=== PATIENT | male | born 1925 | race Caucasian/White ===

== ENCOUNTER 2017-05-05 13:03 | Inpatient (IN) | payer OTHER, MEDICARE ==
[~2017-05-05] VITALS: Ht 162.6 cm; Wt 75.1 kg
[2017-05-05 13:08] VITALS: BP 180/84; PULSE 174; RESP 16; TEMP 98.9; O2SAT 100
--- NOTE | 2017-05-05 13:29 | PD ---
HPI Chief Complaint: Chest Pain Time Seen by Provider: 13:28 Travel History International Travel<30 days: No Contact w/Intl Traveler<30days: No Traveled to known affect area: No History of Present Illness HPI 89-year-old male came to the emergency room with history of chest pain and epigastric pain since last night. Patient says that he had stents put in his biliary duct and pancreatic duct 3 months ago at [place]. However the symptoms started since last night. He appears extremely anxious and shaking. History of vomiting or diarrhea. He says the pain is 7 out of 10 and squeezing. No aggravating or relieving factors identified. [facility] Past Medical History Narrative Medical List of his past medical, surgical, social and family history reviewed from the nursing note. Medical History: Denies Significant Hx Past Surgical History Other Surgery: Yes (stents galbladder, stents pancreas ) Social History Alcohol Use: No Tobacco Use: No Substance Use: No Allergies-Medications (Allergen,Severity, Reaction): Coded Allergies: No Known Allergies (Verified Allergy, Unknown, 05/05/17) Comments No known drug allergies. Reported Meds & Prescriptions Reported Meds & Active Scripts Active Reported Amlodipine (Amlodipine Besylate) 5 Mg Tab 5 Mg PO BID Vitamin D3 (Cholecalciferol) 5,000 Unit Cap 5,000 Units PO DAILY Narrative Medication List of her home medications reviewed from the nursing note. Review of Systems Except as stated in HPI: all other systems reviewed are Neg Cardiovascular: Positive: Chest Pain or Discomfort Gastrointestinal: Positive: Abdominal Pain Physical Exam Narrative GENERAL: Awake, alert, anxious, moderate distress, elderly and frail, emaciated SKIN: Focused skin assessment warm/dry. HEAD: Atraumatic. Normocephalic. EYES: Pupils equal and round. No scleral icterus. No injection or drainage. ENT: No nasal bleeding or discharge. Mucous membranes pink and moist. NECK: Trachea midline. No JVD. CARDIOVASCULAR: Regular rate and rhythm. No murmur appreciated. RESPIRATORY: No accessory muscle use. Clear to auscultation. Breath sounds equal bilaterally. GASTROINTESTINAL: Abdomen soft, non-tender, nondistended. Hepatic and splenic margins not palpable. MUSCULOSKELETAL: No obvious deformities. No clubbing. No cyanosis. No edema. NEUROLOGICAL: Awake and alert. No obvious cranial nerve deficits. Motor grossly within normal limits. Normal speech. PSYCHIATRIC: Appropriate mood and affect; insight and judgment normal. Data Data Last Documented VS Vital Signs Date Time Temp Pulse Resp B/P (MAP) Pulse Ox O2 Delivery O2 Flow Rate FiO2 05/05/17 18:32 100 20 135/71 (92) 99 Room Air 05/05/17 13:08 98.9 Orders Orders Electrocardiogram (05/05/17 13:35) Complete Blood Count With Diff (05/05/17 13:35) Comprehensive Metabolic Panel (05/05/17 13:35) Magnesium (Mg) (05/05/17 13:35) Prothrombin Time / Inr (Pt) (05/05/17 13:35) Troponin I (05/05/17 13:35) Lipase (05/05/17 13:35) Chest, Single Ap (05/05/17 13:35) Ecg Monitoring (05/05/17 13:35) Bilateral Bp Monitoring (05/05/17 13:35) Iv Access Insert/Monitor (05/05/17 13:35) Oximetry (05/05/17 13:35) Oxygen Administration (05/05/17 13:35) Morphine Inj (Morphine Inj) (05/05/17 13:45) Sodium Chloride 0.9% Flush (Ns Flush) (05/05/17 13:45) Sodium Chlorid 0.9% 500 Ml Inj (Ns 500 M (05/05/17 13:45) Cta Thor Abd Aorta W Iv C W3d (05/05/17 13:35) Ondansetron Inj (Zofran Inj) (05/05/17 13:45) Urinalysis - C+S If Indicated (05/05/17 15:58) Iohexol 350 Inj (Omnipaque 350 Inj) (05/05/17 17:40) Piperacil-Tazo 3.375 Gm Premix (Zosyn 3. (05/05/17 19:00) Blood Culture (05/05/17 18:47) Us Abdomen Gallbladder (05/05/17 ) Admit Order (Ed Use Only) (05/05/17 19:30) Labs Laboratory Tests Test 05/05/17 14:00 05/05/17 17:16 White Blood Count 15.4 TH/MM3 Red Blood Count 4.61 MIL/MM3 Hemoglobin 15.0 GM/DL Hematocrit 42.8 % Mean Corpuscular Volume 93.0 FL Mean Corpuscular Hemoglobin 32.5 PG Mean Corpuscular Hemoglobin Concent 35.0 % Red Cell Distribution Width 13.0 % Platelet Count 223 TH/MM3 Mean Platelet Volume 8.2 FL Neutrophils (%) (Auto) 90.0 % Lymphocytes (%) (Auto) 3.3 % Monocytes (%) (Auto) 6.6 % Eosinophils (%) (Auto) 0.0 % Basophils (%) (Auto) 0.1 % Neutrophils # (Auto) 13.9 TH/MM3 Lymphocytes # (Auto) 0.5 TH/MM3 Monocytes # (Auto) 1.0 TH/MM3 Eosinophils # (Auto) 0.0 TH/MM3 Basophils # (Auto) 0.0 TH/MM3 CBC Comment DIFF FINAL Differential Comment Prothrombin Time 10.6 SEC Prothromb Time International Ratio 1.0 RATIO Blood Urea Nitrogen 24 MG/DL Creatinine 0.99 MG/DL Random Glucose 204 MG/DL Total Protein 8.3 GM/DL Albumin 3.4 GM/DL Calcium Level 10.0 MG/DL Magnesium Level 1.6 MG/DL Alkaline Phosphatase 100 U/L Aspartate Amino Transf (AST/SGOT) 22 U/L Alanine Aminotransferase (ALT/SGPT) 22 U/L Total Bilirubin 0.8 MG/DL Sodium Level 136 MEQ/L Potassium Level 3.8 MEQ/L Chloride Level 97 MEQ/L Carbon Dioxide Level 29.0 MEQ/L Anion Gap 10 MEQ/L Estimat Glomerular Filtration Rate 71 ML/MIN Troponin I LESS THAN 0.02 NG/ML Lipase 58 U/L Urine Color YELLOW Urine Turbidity CLEAR Urine pH 6.5 Urine Specific [place] 1.018 Urine Protein 30 mg/dL Urine Glucose (UA) 70 mg/dL Urine Ketones TRACE mg/dL Urine Occult Blood TRACE Urine Nitrite NEG Urine Bilirubin NEG Urine Urobilinogen LESS THAN 2.0 MG/DL Urine Leukocyte Esterase NEG Urine RBC 1 /hpf Urine WBC LESS THAN 1 /hpf Urine Amorphous Sediment RARE Microscopic Urinalysis Comment CULT NOT INDICATED MDM Medical Decision Making Medical Screen Exam Complete: Yes Emergency Medical Condition: Yes Medical Record Reviewed: Yes Interpretation(s) Twelve-lead EKG was reviewed by me. Normal sinus rhythm, left axis deviation, tachycardia, motion artifacts. Heart rate of 120 bpm. Differential Diagnosis ACS, non-STEMI, biliary colic, acute pancreatitis, aortic dissection Narrative Course 4:54 PM the blood test took a substantial amount of time to be resulted. Patient has leukocytosis with a left shift. Awaiting for CT thoracic aortogram to be done and resulted. 6:34 PM all the blood test results of back and besides the leukocytosis everything else is within acceptable limits. CAT scan is still pending to be read at this point. Patient and the family is upset but the nurses tried to explain to them that the CAT scan report is not back yet. I looked at the scan myself and gallbladder and the right gallbladder fossa appears to be abnormal with stranding. I've asked the radiologist to read it. 6:46 PM based on the CAT scan report I put a call out for the general surgeon Dr. Callahan. I'll give the patient a dose of Zosyn for acute cholecystitis. 7:29 PM case was discussed with Dr. Callahan. He wants the patient to be medically admitted and he'll consult on the patient. Procedures EKG Prior to Arrival: No Physician Communication Physician Communication Dr. Callahan Diagnosis Primary Impression: Abdominal pain Qualified Codes: R10.13 - Epigastric pain Additional Impressions: Acute cholecystitis Pancreatic mass History of biliary stent insertion Admitting Information Admitting Physician Requests: Admit Scripts Hydrocodone-Acetaminophen (Portal) 5 Mg-325 Mg Tab 1 TAB PO Q4H Y for PAIN, #20 TAB 0 Refills Prov: Christina Theodore/Check Scaler TELECOM ASSISTANT 05/07/17 Amoxicillin-Clavulanate (Augmentin) 875-125 Mg Tab 1 TAB PO BID for Infection for 5 Days, #10 TAB 0 Refills Prov: Christina Theodore/Check Scaler TELECOM ASSISTANT 05/07/17 Siria Cannon MD May 05, 2017 13:29
[2017-05-05] MEDS ORDERED: CHOL5000 PO (13:31)
[2017-05-05] MEDS ORDERED: AMLO5TAB2 PO (13:31)
[2017-05-05] MEDS ORDERED: LISI-515 PO (13:31)
[2017-05-05] MEDS ORDERED: ONDANSETRON HCL 4 MG/2 ML VIAL IV PUSH ONE (13:45)
[2017-05-05] MEDS ORDERED: MORPHINE SULFATE 4 MG/ML INJ IV PUSH ONE (13:45)
[2017-05-05] MEDS ORDERED: SODIUM CHLORID 0.9% 500 ML INJ 500 ML IV ONE (13:45)
[2017-05-05] MEDS ORDERED: SODIUM CHLORIDE 0.9% FLUSH 10 ML FLUSH IVF PRN (13:45)
[2017-05-05 13:54] VITALS: O2SAT 99
--- NOTE | 2017-05-05 14:37 | RADRPT ---
EXAM DATE/TIME: 05/05/2017 14:13 [facility] COMPARISON: No previous studies available for comparison. INDICATIONS : Chest and back pain. MEDICAL HISTORY : None. SURGICAL HISTORY : 01/2017 stents placed in GB and pancreas. ENCOUNTER: Initial ACUITY: 2 days PAIN SCORE: 7/10 LOCATION: Bilateral chest back. FINDINGS: A single view of the chest demonstrates the lungs to be symmetrically aerated without evidence of mas s, infiltrate or effusion. The cardiomediastinal contours are unremarkable. Osseous structures are intact. There are degenerative changes of both shoulder joints, right greater than left. CONCLUSION: No acute disease. Abel Morocho MD on May 05, 2017 at 14:34 Board Certified Radiologist. This report was verified electronically.
[2017-05-05 15:27] LABS: AUTOMATED NEUTROPHIL # 13.9 TH/MM3 (1.8-7.7); BASOPHIL % 0.1 % (0.0-2.0); HEMATOCRIT 42.8 % (39.0-51.0); LYMPH % 3.3 % (9.0-44.0); LYMPHOCYTE # 0.5 TH/MM3 (1.0-4.8); MEAN CORPUSCULAR HEMOGLOBIN 32.5 PG (27.0-34.0); MEAN PLATELET VOLUME 8.2 FL (7.0-11.0); MONO % 6.6 % (0.0-8.0); PLATELET COUNT 223 TH/MM3 (150-450); RED BLOOD COUNT 4.61 MIL/MM3 (4.50-5.90); WHITE BLOOD COUNT 15.4 TH/MM3 (4.0-11.0)
[2017-05-05 15:39] LABS: PROTHROMBIN TIME - PATIENT 10.6 SEC (9.8-11.6)
[2017-05-05 16:17] LABS: ALKALINE PHOSPHATASE 100 U/L (45-117); TOTAL BILIRUBIN ADULT 0.8 MG/DL (0.2-1.0); TOTAL PROTEIN 8.3 GM/DL (6.4-8.2); TROPONIN I LESS THAN 0.02 NG/ML (0.02-0.05)
[2017-05-05 16:19] LABS: ALBUMIN 3.4 GM/DL (3.4-5.0); ALT (GPT) 22 U/L (12-78); AST (GOT) 22 U/L (15-37); BLOOD UREA NITROGEN 24 MG/DL (7-18); CHLORIDE 97 MEQ/L (98-107); CREATININE 0.99 MG/DL (0.60-1.30); GLOMERULAR FILTRATION RATE 71 ML/MIN (>89); GLUCOSE,RANDOM 204 MG/DL (74-106); MAGNESIUM 1.6 MG/DL (1.5-2.5); SODIUM (NA) 136 MEQ/L (136-145)
[2017-05-05] MEDS ORDERED: IOHEXOL 350 MG/ML 10 ML VIAL (for RAD DIAG) IVCONTRAST ONE (17:40)
[2017-05-05 18:15] LABS: AMORPHOUS SEDIMENT, URINE RARE; BILIRUBIN, URINE NEG (NEG); BLOOD, URINE TRACE (NEG); GLUCOSE,URINE 70 mg/dL (NEG); KETONE, URINE TRACE mg/dL (NEG); NITRITE,URINE NEG (NEG); PH, URINE 6.5 (5.0-8.5); URINE COLOR YELLOW (YELLW/STRAW); URINE LEUKOCYTE ESTERASE NEG (NEG)
[2017-05-05 18:32] VITALS: BP 135/71; PULSE 100; RESP 20; O2SAT 99
--- NOTE | 2017-05-05 18:40 | RADRPT ---
EXAM DATE/TIME: 05/05/2017 17:29 [facility] COMPARISON: No previous studies available for comparison. INDICATIONS : Chest pains with back pain started last pm . IV CONTRAST: 90 cc Omnipaque 350 (iohexol) IV RADIATION DOSE: 71.52 CTDIvol (mGy) MEDICAL HISTORY : Pancreatitis. SURGICAL HISTORY : GB stent ENCOUNTER: Initial ACUITY: 1 day PAIN SCALE: 0/10 LOCATION: Umbilical TECHNIQUE: Volumetric scanning was performed using a multi-row detector CT scanner. The data was post processed with a variety of visualization algorithms including full volume maximum intensity projection, multi -planar sliding thin slab reformation, curved planar reformation, and surface rendering techniques. Using automated exposure control and adjustment of the mA and/or kV according to patient size, radiat ion dose was kept as low as reasonably achievable to obtain optimal diagnostic quality images. DICOM format image data is available electronically for review and comparison. FINDINGS: The arterial structures are suboptimally opacified. LUNGS: There is increased density at the posterior lower lobes bilaterally being more prominent on the right . MEDIASTINUM: No abnormally enlarged lymph nodes by CT criteria. No axillary or hilar abnormalities are identified. Coronary artery calcifications are present. ABDOMEN: There is low-density seen in the liver. There is pneumobilia. The patient is a biliary stent in place . The gallbladder is distended. There is some inflammatory change seen in the right upper quadrant ar ound the gallbladder. There is minimal free fluid in the right paracolic gutter region. The spleen is normal. There is enlargement of the pancreatic head and uncinate process. A mass may be present in t his region. There is minimal cystic change in the pancreatic body and focal calcification at the panc reatic tail. Both kidneys are signal enhancement. Minimal cystic changes in the kidneys. No hydroneph rosis is seen. There are bilateral 1.8 cm adrenal gland masses. There are scattered colonic diverticu la. PELVIS: The prostate appears enlarged. No pelvic mass or adenopathy is seen. THORACIC AORTA: The thoracic aortic root is normal with normal branching of the great vessels. There is no evidence of aneurysm or dissection. Scattered atherosclerotic calcifications are seen. ABDOMINAL AORTA: The aorta is normal in caliber without aneurysm or dissection. The renal arteries are patent bilater ally. The proximal celiac and superior mesenteric arteries are patent and normal in diameter. Athe rosclerotic calcifications are seen. PELVIC VESSELS: The internal iliac and external iliac vessels are patent without aneurysm or stenosis. Atheroscleroti c calcifications are seen. CONCLUSION: 1. The aorta is intact. There are scattered atherosclerotic calcifications. 2. Induration in the fat surrounding the gallbladder in the right upper quadrant with a small amount of free fluid in the right paracolic gutter region. Cholecystitis could have this appearance. The pat ient does have a biliary stent in place. There is pneumobilia. 3. Masslike area seen in the uncinate process measuring approximately 3 cm. This should be correlated with the patient's known history. The patient has a pre-existing biliary stent in place. 4. Scattered colonic diverticula. 5. Bibasilar areas of consolidation or atelectasis being worse on the right. 6. Mild hepatic steatosis. Seth Adams MD on May 05, 2017 at 18:27 Board Certified Radiologist. This report was verified electronically.
[2017-05-05] MEDS ORDERED: PIPERACIL-TAZO 3.375 GM PREMIX 50 ML IV ONE (19:00)
--- NOTE | 2017-05-05 20:56 | HHI.HP ---
[facility] Service [facility] Primary Care Physician Non-Staff Admission Diagnosis abdominal pain, acute cholecystitis, intracranial mass, biliary sten Diagnoses: Travel History International Travel<30 Days: No Contact w/Intl Traveler <30 Da: No Traveled to Known Affected Are: No History of Present Illness 89-year-old male with a past medical history significant for questionable pancreatic mass with biliary stent placement on 01/24 and hypertension presents to the emergency department for the evaluation of severe epigastric pain. The patient reports the pain started this morning is in the epigastrium and radiates to his bilateral sides. He denies any nausea/vomiting. Denies subjective fever but endorses chills. The patient had a biliary stent placed with a biopsy of a pancreatic mass in January of last year. The biopsy reportedly came back inconclusive. Patient denies nausea/vomiting/diarrhea. He denies chest pain or shortness of breath. No lateralizing signs/symptoms. Review of Systems Except as stated in HPI: all other systems reviewed are Neg Past Family Social History Past Medical History Hypertension Biliary stent placement History of pancreatic mass Past Surgical History Pancreatic mass biopsy Biliary stent placement Bilateral knee replacement Reported Medications Reported Meds & Active Scripts Active Reported Lisinopril 20 Mg Tab 20 Mg PO DAILY Amlodipine (Amlodipine Besylate) 5 Mg Tab 5 Mg PO BID Vitamin D3 (Cholecalciferol) 5,000 Unit Cap 5,000 Units PO DAILY Allergies: Coded Allergies: No Known Allergies (Verified Allergy, Unknown, 05/05/17) Family History Negative for CAD/DM Social History Remote history of smoking. Rare alcohol. No illicit drug use. Physical Exam Vital Signs Vital Signs Date Time Temp Pulse Resp B/P (MAP) Pulse Ox O2 Delivery O2 Flow Rate FiO2 05/05/17 18:32 100 20 135/71 (92) 99 Room Air 05/05/17 16:14 18 05/05/17 13:54 99 05/05/17 13:54 99 Room Air 05/05/17 13:26 122 05/05/17 13:08 98.9 174 16 180/84 (116) 100 Physical Exam GENERAL: Occasional male lying in bed SKIN: No rashes, ecchymoses or lesions. Cool and dry. HEAD: Atraumatic. Normocephalic. No temporal or scalp tenderness. EYES: Pupils equal round and reactive. Extraocular motions intact. No scleral icterus. No injection or drainage. ENT: Nose without bleeding, purulent drainage or septal hematoma. Throat without erythema, tonsillar hypertrophy or exudate. Uvula midline. Airway patent. NECK: Trachea midline. No JVD or lymphadenopathy. Supple, nontender, no meningeal signs. CARDIOVASCULAR: Regular rate and rhythm without murmurs, gallops, or rubs. RESPIRATORY: Clear to auscultation. Breath sounds equal bilaterally. No wheezes , rales, or rhonchi. GASTROINTESTINAL: Abdomen soft, diffusely tender to palpation, worse in the epigastrium, nondistended. No hepato-splenomegaly, or palpable masses. No guarding. MUSCULOSKELETAL: Extremities without clubbing, cyanosis, or edema. No joint tenderness, effusion, or edema noted. No calf tenderness. NEUROLOGICAL: Awake and alert. Cranial nerves II through XII intact. Motor and sensory grossly within normal limits. Normal speech. Laboratory Laboratory Tests Test 05/05/17 14:00 05/05/17 17:16 White Blood Count 15.4 Red Blood Count 4.61 Hemoglobin 15.0 Hematocrit 42.8 Mean Corpuscular Volume 93.0 Mean Corpuscular Hemoglobin 32.5 Mean Corpuscular Hemoglobin Concent 35.0 Red Cell Distribution Width 13.0 Platelet Count 223 Mean Platelet Volume 8.2 Neutrophils (%) (Auto) 90.0 Lymphocytes (%) (Auto) 3.3 Monocytes (%) (Auto) 6.6 Eosinophils (%) (Auto) 0.0 Basophils (%) (Auto) 0.1 Neutrophils # (Auto) 13.9 Lymphocytes # (Auto) 0.5 Monocytes # (Auto) 1.0 Eosinophils # (Auto) 0.0 Basophils # (Auto) 0.0 CBC Comment DIFF FINAL Differential Comment Prothrombin Time 10.6 Prothromb Time International Ratio 1.0 Blood Urea Nitrogen 24 Creatinine 0.99 Random Glucose 204 Total Protein 8.3 Albumin 3.4 Calcium Level 10.0 Magnesium Level 1.6 Alkaline Phosphatase 100 Aspartate Amino Transf (AST/SGOT) 22 Alanine Aminotransferase (ALT/SGPT) 22 Total Bilirubin 0.8 Sodium Level 136 Potassium Level 3.8 Chloride Level 97 Carbon Dioxide Level 29.0 Anion Gap 10 Estimat Glomerular Filtration Rate 71 Troponin I LESS THAN 0.02 Lipase 58 Urine Color YELLOW Urine Turbidity CLEAR Urine pH 6.5 Urine Specific [place] 1.018 Urine Protein 30 Urine Glucose (UA) 70 Urine Ketones TRACE Urine Occult Blood TRACE Urine Nitrite NEG Urine Bilirubin NEG Urine Urobilinogen LESS THAN 2.0 Urine Leukocyte Esterase NEG Urine RBC 1 Urine WBC LESS THAN 1 Urine Amorphous Sediment RARE Microscopic Urinalysis Comment CULT NOT INDICATED Result Diagram: 05/05/17 1400 05/05/17 1400 Caprinruma VTE Risk Assessment Caprini VTE Risk Assessment: Mod/High Risk (score >= 2) Caprini Risk Assessment Model Point Value = 1 Point Value = 2 Point Value = 3 Point Value = 5 Age 41-60 Minor surgery BMI > 25 kg/m2 Swollen legs Varicose veins or History of unexplained or recurrent spontaneous Oral contraceptives or hormone replacement Sepsis (< 1 month) Serious lung disease, including pneumonia (< 1 month) Abnormal pulmonary function Acute myocardial infarction Congestive heart failure (< 1 month) History of inflammatory bowel disease Medical patient at bed rest Age 61-74 Arthroscopic surgery Major open surgery (> 45 min) Laparoscopic surgery (> 45 min) Malignancy Confined to bed (> 72 hours) Immobilizing plaster cast Central venous access Age >= 75 History of VTE Family history of VTE Factor V Leiden Prothrombin [id number] Lupus anticoagulant Anticardiolipin antibodies Elevated serum homocysteine Heparin-induced thrombocytopenia Other congenital or acquired thrombophilia Stroke (< 1 month) Elective arthroplasty Hip, pelvis, or leg fracture Acute spinal cord injury (< 1 month) Prophylaxis Regimen Total Risk Factor Score Risk Level Prophylaxis Regimen 0-1 Low Early ambulation 2 Moderate Order ONE of the following: *Sequential Compression Device (SCD) *Heparin 5000 units SQ BID 3-4 Higher Order ONE of the following medications: *Heparin 5000 units SQ TID *Enoxaparin/Lovenox 40 mg SQ daily (WT < 150 kg, CrCl > 30 mL/min) *Enoxaparin/Lovenox 30 mg SQ daily (WT < 150 kg, CrCl > 10-29 mL/min) *Enoxaparin/Lovenox 30 mg SQ BID (WT < 150 kg, CrCl > 30 mL/min) AND/OR *Sequential Compression Device (SCD) 5 or more Highest Order ONE of the following medications: *Heparin 5000 units SQ TID (Preferred with Epidurals) *Enoxaparin/Lovenox 40 mg SQ daily (WT < 150 kg, CrCl > 30 mL/min) *Enoxaparin/Lovenox 30 mg SQ daily (WT < 150 kg, CrCl > 10-29 mL/min) *Enoxaparin/Lovenox 30 mg SQ BID (WT < 150 kg, CrCl > 30 mL/min) AND *Sequential Compression Device (SCD) Assessment and Plan Assessment and Plan Assessment/plan: 1. Cholecystitis CT significant for induration in the fat surrounding the gallbladder in the right upper quadrant with a small amount of free fluid in the right. Colic gutter region, concerning for cholecystitis Patient with leukocytosis of 15.4 Zosyn A bladder ultrasound pending General surgery consulted, appreciate recommendations 2. Pancreatic mass CT of the abdomen/pelvis shows a masslike area seen in the uncinate process measuring approximately 3 cm Patient with known history of pancreatic mass with previous biopsy that was inconclusive Patient will likely need to follow-up as an outpatient with his physicians in [place] 3. Hypertension Continue home amlodipine and lisinopril FEN NPO Electrolytes: monitor and replete prn NS at 100 cc/hr Holding pharmacologic anticoagulation for possible operative intervention Physician Certification 2 Midnight Certification Type: Admission for Inpatient Services Order for Inpatient Services The services are ordered in accordance with Medicare regulations or non- Medicare payer requirements, as applicable. In the case of services not specified as inpatient-only, they are appropriately provided as inpatient services in accordance with the 2-midnight benchmark. Estimated LOS (days): 2 2 days is the estimated time the patient will need to remain in the hospital, assuming treatment plan goals are met and no additional complications. Post-Hospital Plan: Not yet determined Maral Doshi MD May 05, 2017 20:56
[2017-05-05] MEDS ORDERED: SENNOSIDES 8.6 MG TAB PO PRN (21:00)
[2017-05-05] MEDS ORDERED: ONDANSETRON HCL 4 MG/2 ML VIAL IVP PRN (21:00)
[2017-05-05] MEDS: SODIUM CHLOR 0.9% 1000 ML INJ 1,000 ML IV SCH (21:00)
[2017-05-05] MEDS ORDERED: BISACODYL 10 MG SUPP RECTAL PRN (21:00)
[2017-05-05] MEDS ORDERED: NALOXONE HCL 0.4 MG/ML AMP IV PUSH PRN (21:00)
[2017-05-05] MEDS ORDERED: LACTULOSE SYRUP 20 GM/30 ML CUP PO PRN (21:00)
[2017-05-05] MEDS ORDERED: SODIUM CHLORIDE 0.9% FLUSH 10 ML FLUSH IV FLUSH PRN (21:00)
[2017-05-05] MEDS ORDERED: MAGNESIUM HYDROXIDE SUSP 30 ML CUP PO PRN (21:00)
--- NOTE | 2017-05-05 21:14 | RADRPT ---
EXAM DATE/TIME: 05/05/2017 20:41 [facility] COMPARISON: CTA THORACIC ABDOMINAL AORTA W 3D RECON, May 05, 2017, 17:29. INDICATIONS : Cholecystitis. MEDICAL HISTORY : None. SURGICAL HISTORY : Two knee replacements. Stents in gallbladder and pacreas. ENCOUNTER: Initial ACUITY: 1 day PAIN SCORE: 4/10 LOCATION: Right upper quadrant MEASUREMENTS: LIVER: 21.9 cm length COMMON DUCT: 10 mm RIGHT KIDNEY: 12.2 x 5.5 x 5.8 cm FINDINGS: LIVER: Pneumobilia is seen. No focal hepatic masses are seen. COMMON DUCT: There is a biliary stent seen. GALLBLADDER: Numerous gallstones are seen. The gallbladder wall is thickened at 4 mm. Or cholecystic fluid is pres ent. PANCREAS: There is a hypoechoic solid masslike area seen at the pancreatic head and uncinate process measuring 4.6 x 3.5 x 3.0 cm. RIGHT KIDNEY: No evidence of hydronephrosis, stone, or mass. OTHER: There is a 1.5 cm right adrenal gland mass. CONCLUSION: 1. Cholelithiasis with thickened gallbladder wall and pericholecystic fluid thought tot represent cho lecystitis. 2. Pancreatic mass. 3. Biliary stent. Pneumobilia is present. Seth Adams MD on May 05, 2017 at 21:04 Board Certified Radiologist. This report was verified electronically.
[2017-05-05 22:15] VITALS: BP 128/75; PULSE 108; RESP 18; TEMP 97.9; O2SAT 94
[2017-05-05] MEDS: MORPHINE SULFATE 4 MG/ML INJ IV PUSH PRN (22:52)
[2017-05-05] MEDS: SODIUM CHLORIDE 0.9% FLUSH 10 ML FLUSH IV FLUSH SCH (22:53)
[2017-05-05] MEDS: amLODIPine BESYLATE 5 MG TAB PO SCH (22:53)
[2017-05-05] MEDS: DOCUSATE SODIUM 50 MG/SENNA 8.6 MG TAB PO SCH (22:53)
[2017-05-05 23:51] VITALS: BP 115/66; PULSE 90; RESP 16; TEMP 97.7; O2SAT 94
[2017-05-06] VITALS (9 sets, daily range): BP systolic 87–140; BP diastolic 45–69; PULSE 73–92; RESP 16–18; TEMP 97.7–98.1; O2SAT 90–95
[2017-05-06] MEDS: PIPERACIL-TAZO 3.375 GM PREMIX 50 ML IV SCH ×4 (02:00→21:04)
[2017-05-06 06:58] LABS: AUTOMATED NEUTROPHIL # 15.1 TH/MM3 (1.8-7.7); HEMATOCRIT 37.7 % (39.0-51.0); HEMOGLOBIN 13.2 GM/DL (13.0-17.0); LYMPH % 3.4 % (9.0-44.0); LYMPHOCYTE # 0.6 TH/MM3 (1.0-4.8); MEAN CELL VOLUME 92.9 FL (80.0-100.0); MEAN CORPUSCULAR HEMOGLOBIN 32.5 PG (27.0-34.0); MEAN PLATELET VOLUME 8.1 FL (7.0-11.0); MONO % 8.9 % (0.0-8.0); MONOCYTE # 1.5 TH/MM3 (0-0.9); NEUT % 87.7 % (16.0-70.0); PLATELET COUNT 186 TH/MM3 (150-450); RED BLOOD COUNT 4.06 MIL/MM3 (4.50-5.90); WHITE BLOOD COUNT 17.2 TH/MM3 (4.0-11.0)
[2017-05-06] MEDS: SODIUM CHLOR 0.9% 1000 ML INJ 1,000 ML IV SCH ×3 (07:00→22:09)
[2017-05-06 07:43] LABS: ALBUMIN 2.5 GM/DL (3.4-5.0); ALKALINE PHOSPHATASE 76 U/L (45-117); ALT (GPT) 18 U/L (12-78); AST (GOT) 17 U/L (15-37); BICARBONATE 29.6 MEQ/L (21.0-32.0); BLOOD UREA NITROGEN 26 MG/DL (7-18); CHLORIDE 101 MEQ/L (98-107); CREATININE 1.32 MG/DL (0.60-1.30); GLOMERULAR FILTRATION RATE 51 ML/MIN (>89); GLUCOSE,RANDOM 164 MG/DL (74-106); SODIUM (NA) 140 MEQ/L (136-145); TOTAL PROTEIN 6.7 GM/DL (6.4-8.2)
[2017-05-06] MEDS: LISINOPRIL 20 MG TAB PO SCH (09:00)
[2017-05-06] MEDS: DOCUSATE SODIUM 50 MG/SENNA 8.6 MG TAB PO SCH ×2 (09:00→20:40)
[2017-05-06] MEDS: SODIUM CHLORIDE 0.9% FLUSH 10 ML FLUSH IV FLUSH SCH ×2 (09:00→12:50)
[2017-05-06] MEDS: amLODIPine BESYLATE 5 MG TAB PO SCH (09:00)
[2017-05-06] MEDS ORDERED: MIDAZOLAM HCL 2 MG/2 ML VIAL ONE (09:01)
[2017-05-06] MEDS ORDERED: VANCOMYCIN HCL 1000 MG VIAL ONE (09:06)
[2017-05-06] MEDS ORDERED: IOHEXOL 350 MG/ML 50 ML BTL (for RAD DIAG) OTHER ONE (09:59)
--- NOTE | 2017-05-06 10:07 | PD.RAD ---
Post Procedure Progress Note Pre Procedure Diagnosis: (1) Acute cholecystitis Post Procedure Diagnosis: (1) Acute cholecystitis Procedure Date: May 06, 2017 Supervising Radiologist: Aakash Parnell Proceduralist/Assist: RT Renate(R), RT Jerry(R)(CV) Anesthesia: Conscious Sedation Plan of Activity Patient to Unit: Nursing Unit Patient Condition: Fair See PACS Report for procedural detail/treatment Drainage Procedure Procedure 1 Imaging Guidance: Fluoroscopy Procedure Type: Cholecystostomy Procedure: Placement Citizen Of [place]: 8 Fluid Description: Cloudy, Yellow Aakash Parnell MD May 06, 2017 10:07
[2017-05-06] MEDS: MORPHINE SULFATE 4 MG/ML INJ IV PUSH PRN ×3 (10:57→22:20)
--- NOTE | 2017-05-06 11:35 | MB ---
cc: Lincoln Callahan MD DATE: 05/06/2017 CHIEF COMPLAINT: Abdominal pain. REASON FOR CONSULTATION: Acute cholecystitis with cholelithiasis. HISTORY OF PRESENT ILLNESS: The patient is an 89-year-old male who presents with acute onset of epigastric and right-sided abdominal pain. He states the pain has been going on for some time now and continued to get worse acutely. He has a history of a questionable pancreatic mass and biliary stenting. The patient is somewhat of a poor historian and difficult to elucidate of full history; however, the patient notes that this significant pain. He is hemodynamically stable; however, he is somewhat tachycardic. Surgery was consulted for evaluation after a CT scan showed pneumobilia, a thickened gallbladder wall and stones. Ultrasound confirmed acute cholecystitis. The patient currently is denying any fevers or chills. He does note that he had stents placed approximately 3 months ago in [place] where he is being followed. PAST MEDICAL HISTORY: Hypertension, biliary stent, history of pancreatic mass. PAST SURGICAL HISTORY: Pancreatic biopsy, biliary stent, bilateral knee replacements. MEDICATIONS: See EMR. ALLERGIES: NO KNOWN DRUG ALLERGIES. SOCIAL HISTORY: Distant history of smoking, occasional ETOH, denies IVDA. FAMILY HISTORY: Denies coronary artery disease or diabetes. REVIEW OF SYSTEMS: GENERAL: Denies fevers or chills. HEENT: Denies eye pain or ear pain. NECK: Denies swelling or pain. LUNGS: Denies cough or wheeze. HEART: Denies palpitation or chest pain, complaint of tightness. ABDOMEN: Complains of epigastric pain and right-sided pain. GENITOURINARY: Denies dysuria or hematuria. ENDOCRINE: Denies polyuria or polydipsia. MUSCULOSKELETAL: Denies clubbing or edema. NEUROLOGIC: Denies numbness or tingling. PHYSICAL EXAMINATION: GENERAL: The patient in no acute distress. VITAL SIGNS: Temperature 98.9, pulse 122, respirations 16, blood pressure 180/84, saturation 100 percent. HEENT: Pupils equal, round, and reactive. NECK: Supple. Trachea midline. LUNGS: Bilateral symmetric expansion, clear. HEART: S1, S2, tachycardia. ABDOMEN: Soft with positive tenderness to palpation in the right upper quadrant. EXTREMITIES: Warm and well perfused. NEUROLOGIC: Awake, alert to person and place, 5/5 motor all extremities. PSYCHIATRIC: Appropriate mood and judgment. LABORATORY AND DIAGNOSTIC DATA: WBC 15.4, hemoglobin 15, hematocrit 42.8, platelets 223. Sodium 136, potassium 3.8, chloride 97, BUN 24, creatinine 0.9, AST 22, ALT 22, alkaline phosphatase 100, albumin 3.4, lipase 58, glucose 204. INR is 1. CT scan reviewed by myself showing induration surrounding gallbladder, right upper quadrant. Small free fluid pericolic region. Biliary stents in place. Mass-like seen in uncinate process 3 cm. Ultrasound: Cholelithiasis with gallbladder wall thickening, pericholecystic fluid, cholecystitis. ASSESSMENT: The patient is an 89-year-old male with acute cholecystitis with cholelithiasis, history of pancreatic mass, status post biliary stenting, hypertension. PLAN: After full clinical, radiologic and laboratory workup, the patient with above main issues including pancreatic mass. At this point, we do not have full hospital records as to the exact pathology of this pancreatic mass. My concern would be some sort of pancreatic cancer. It looks like he has a decompressed biliary tree with biliary stenting as well. I will attempt to obtain hospital records for the patient with acute cholecystitis and cholelithiasis. Discussed with the patient, the patient noted to be followed in [place] and has had a workup there. He notes he will be heading back to [place] Wednesday and at this time is not wanting to pursue surgery if at all avoidable and would like to have further treatment in [place]. Discussed with the patient regarding pathology, etiology of acute cholecystitis and the recommendation for either IV antibiotics and possible option of interventional radiology with cholecystostomy tube placement. The patient was agreeable to this and would like to proceed. I discussed with the patient that this tube would likely be in place for up to 6 weeks to decompress the gallbladder and would need to be on antibiotics and further the importance of needing to follow up with a surgeon in [place] for further evaluation and treatment. Again, the patient stated understanding and agreed with this. MD DEEPALI Higginbotham/GIO , 11:08 AM , 11:34 AM
[2017-05-06] MEDS: ACETAMINOPHEN 325 MG TAB PO PRN (11:43)
--- NOTE | 2017-05-06 12:21 | EKG ---
Date Performed: 05/05/2017 Time Performed: 13:23:58 PTAGE: 89 years EKG: SINUS TACHYCARDIA WITH OCCASIONAL VENTRICULAR PREMATURE COMPLEXES LEFT VENTRICULAR HYPERTRO PHY AND ST-T CHANGE ABNORMAL ECG NO PREVIOUS TRACING DOCTOR: Jose Francis Interpretating Date/Time 05/06/2017 12:17:06
--- NOTE | 2017-05-06 12:51 | HHI.PR ---
Subjective Remarks Patient c/o RUQ pain denies fevers, + chills afebrile Denies nausea or vomiting Objective Vitals Vital Signs Date Time Temp Pulse Resp B/P (MAP) Pulse Ox O2 Delivery O2 Flow Rate FiO2 05/06/17 12:31 98.0 84 18 140/62 (88) 95 05/06/17 11:45 89 16 94/51 (65) 93 05/06/17 11:15 85 16 87/46 (60) 94 05/06/17 10:45 88 16 102/69 (80) 93 05/06/17 10:15 90 16 103/45 (64) 94 05/06/17 10:00 98.1 88 16 96/48 (64) 91 05/06/17 08:00 97.7 92 18 104/57 (73) 90 05/05/17 23:51 97.7 90 16 115/66 (82) 94 05/05/17 22:15 97.9 108 18 128/75 (92) 94 05/05/17 22:12 05/05/17 18:32 100 20 135/71 (92) 99 Room Air 05/05/17 16:14 18 05/05/17 13:54 99 05/05/17 13:54 99 Room Air 05/05/17 13:26 122 05/05/17 13:08 98.9 174 16 180/84 (116) 100 I/O 05/05/17 05/05/17 05/05/17 05/06/17 05/06/17 05/06/17 07:00 15:00 23:00 07:00 15:00 23:00 Intake Total 500 ml 360 ml Output Total 500 ml Balance 500 ml -140 ml Intake Oral 360 ml IV Total 500 ml Output Urine Total 500 ml # Bowel Movements 0 Result Diagram: 05/06/1718 05/06/1718 Imaging Last Impressions Chest X-Ray 05/05/171334 Signed Impressions: Service Date/Time: Friday, May 05, 2017 14:13 - CONCLUSION: No acute disease. Abel Morocho MD Aorta CTA 05/05/171334 Signed Impressions: Service Date/Time: Friday, May 05, 2017 17:29 - CONCLUSION: 1. The aorta is intact. There are scattered atherosclerotic calcifications. 2. Induration in the fat surrounding the gallbladder in the right upper quadrant with a small amount of free fluid in the right paracolic gutter region. Cholecystitis could have this appearance. The patient does have a biliary stent in place. There is pneumobilia. 3. Masslike area seen in the uncinate process measuring approximately 3 cm. This should be correlated with the patient's known history. The patient has a pre-existing biliary stent in place. 4. Scattered colonic diverticula. 5. Bibasilar areas of consolidation or atelectasis being worse on the right. 6. Mild hepatic steatosis. Seth Adams MD Gall Bladder Ultrasound 05/05/17 0000 Signed Impressions: Service Date/Time: Friday, May 05, 2017 20:41 - CONCLUSION: 1. Cholelithiasis with thickened gallbladder wall and pericholecystic fluid thought tot represent cholecystitis. 2. Pancreatic mass. 3. Biliary stent. Pneumobilia is present. Seth Adams MD Objective Remarks AAOx3 nad Diminished air entry BL lung restrepo abdomen soft, tenderness over RUQ, cholecystostomy tube in place draining that green fluid. no edema in extremities Procedures Is post percutaneous angiogram Medications and IVs Current Medications Medications (Trade) Dose Ordered Sig/Hayden Route Start Time Stop Time Status Last Admin (Morphine Inj) 4 mg Q3H PRN IV PUSH 05/05/17 21:00 05/06/17 10:57 Piperacillin Sod/ Tazobactam Sod 50 ml @ 100 mls/hr Q6H IV 05/06/17 02:00 05/06/17 02:00 (NS Flush) 2 ml UNSCH PRN IV FLUSH 05/05/17 21:00 (NS Flush) 2 ml BID IV FLUSH 05/05/17 21:00 05/05/17 22:53 (Tylenol) 650 mg Q4H PRN PO 05/05/17 21:00 05/06/17 11:43 (Zofran Inj) 4 mg Q6H PRN IVP 05/05/17 21:00 (Narcan Inj) 0.4 mg UNSCH PRN IV PUSH 05/05/17 21:00 (Jadyn-Colace) 1 tab BID PO 05/05/17 21:00 05/05/17 22:53 (Milk Of Magnesia Liq) 30 ml Q12H PRN PO 05/05/17 21:00 (Senokot) 17.2 mg Q12H PRN PO 05/05/17 21:00 (Dulcolax Supp) 10 mg DAILY PRN RECTAL 05/05/17 21:00 (Lactulose Liq) 30 ml DAILY PRN PO 05/05/17 21:00 (Norvasc) 5 mg BID PO 05/05/17 21:00 05/05/17 22:53 (Prinivil) 20 mg DAILY PO 05/06/17 09:00 A/P Problem List: (1) Abdominal pain ICD Code: R10.9 - Unspecified abdominal pain Status: Acute (2) Acute cholecystitis ICD Code: K81.0 - Acute cholecystitis Status: Acute (3) Pancreatic mass ICD Code: K86.9 - Disease of pancreas, unspecified Status: Acute (4) History of biliary stent insertion ICD Code: Z98.890 - Other specified postprocedural states Status: Acute Assessment and Plan 1. Acute Cholecystitis CT significant for induration in the fat surrounding the gallbladder in the right upper quadrant with a small amount of free fluid in the right. Colic gutter region, concerning for cholecystitis Patient with leukocytosis of 15.4 Zosyn A bladder ultrasound pending General surgery conditions appreciated. The patient status post percutaneous cholecystostomy tube placement by interventional radiology. The patient complains of increased pain on right upper quadrant. I will order a 2 mg IV morphine dose now. Continue pain control with IV morphine. 2. Pancreatic mass CT of the abdomen/pelvis shows a masslike area seen in the uncinate process measuring approximately 3 cm Patient with known history of pancreatic mass with previous biopsy that was inconclusive Patient will likely need to follow-up as an outpatient with his physicians in [place] 3. Hypertension Monitor and lisinopril were continued on admission. BP on the low side. We'll hold antihypertensive medications for now. 4. Hypokalemia Due to decreased by mouth intake secondary to pain. Replace orally and continue to monitor BMP. 5. Hyperglycemia No previous history of diabetes mellitus. Check hemoglobin A1c. We'll place on SSI with insulin NovoLog and monitor Accu-Cheks Discharge Planning DVT prophylaxis: We'll add heparin subcutaneously, continue SCDs. Problem Qualifiers (1) Abdominal pain: Qualified Codes: R10.13 - Epigastric pain Lockwood Almazan,Jose Carlos MD May 06, 2017 12:51
[2017-05-06] MEDS ORDERED: MORPHINE SULFATE 2 MG/ML SYRINGE IV PUSH ONE (13:15)
[2017-05-06] MEDS ORDERED: GLUCAGON 1 MG/ML VIAL OTHER PRN (13:15)
[2017-05-06] MEDS ORDERED: DEXTROSE 50% IN WATER 50 ML VIAL(D50) IV PUSH PRN (13:15)
[2017-05-06] MEDS: INSULIN ASPART SUPPLEMENTAL SCALE SQ SCH ×2 (14:05→21:04)
[2017-05-06] MEDS: POTASSIUM CHLOR 20 MEQ PREMIX 100 ML IV SCH ×2 (14:07→16:26)
--- NOTE | 2017-05-06 14:39 | RADRPT ---
EXAM DATE/TIME: 05/06/2017 09:13 [facility] COMPARISON: No previous studies available for comparison. INDICATIONS : Abdominal pain. Acute cholecystitis. MEDICAL HISTORY : 1. HTN 2. Pancreatic mass SURGICAL HISTORY : 1. Pancreatic mass bx 2. Billary stent placement 3. Bilateral knee replacements ENCOUNTER: Initial ACUITY: 2 days PAIN SCORE: 2/10 LOCATION: Right upper quadrant FLUORO TIME: 1.5 minutes IMAGE SERIES: 2 SEDATION TIME: 30 minutes CONTRAST: 30 cc Omnipaque (iohexol) 350 MEDICATION(S): 1.) 0.5 mg midazolam (Versed) IV 2.) 25 mcg fentanyl (Sublimaze) IV Prophylactic antibiotics were administered with appropriate pre-procedure timing. DEVICE(S): 1.) 8 Estonian locking All purpose drain PROCEDURE : 1. Ultrasound guided puncture of the gallbladder. 2. Percutaneous cholangiogram. 3. Percutaneous cholecystostomy tube placement. 4. Conscious sedation with continuous EKG and oximetry monitoring. The risks, benefits and alternatives to the procedure were explained and verbal and written consent w as obtained. The site was prepped in sterile fashion. Full sterile technique was used, including ca p, mask, sterile gloves and gown and a large sterile sheet. Hand hygiene and 2% chlorhexidine and/or betadine/alcohol prep was utilized per protocol for cutaneous antisepsis. Sterile gel and sterile p robe cover were utilized for ultrasound guidance. The skin and subcutaneous tissues were infiltrated with local anesthetic solution. With ultrasound and fluoroscopic guidance the gallbladder was punctured with a micropuncture set and a 4 Estonian dilator was placed. Injection of positive contrast demonstrates position within the gallb ladder. A 0.035 guidewire was placed within the gallbladder lumen and dilatation was performed to ac cept the prescribed catheter. There are numerous stones in the gallbladder Conscious sedation was performed with the prescribed dosages and duration as above in the presence of an independent trained radiology nurse to assist in the monitoring of the patient. EKG and oximetry remained stable throughout the procedure. The patient tolerated the procedure well and there were n o complications. The patient was sent to post anesthesia recovery in stable condition. CONCLUSION: Uncomplicated percutaneous cholecystostomy as above. Aakash Parnell MD on May 06, 2017 at 14:37 Board Certified Radiologist. This report was verified electronically.
[2017-05-06 15:53] LABS: HEMOGLOBIN A1C 6.5 % (4.3-6.0)
[2017-05-07 00:05] VITALS: BP 122/60; PULSE 87; RESP 15; TEMP 98.7; O2SAT 95
[2017-05-07] MEDS: ACETAMINOPHEN 325 MG TAB PO PRN ×2 (01:06→10:20)
[2017-05-07] MEDS: PIPERACIL-TAZO 3.375 GM PREMIX 50 ML IV SCH ×4 (02:13→21:44)
[2017-05-07 04:00] VITALS: BP_SYST 119; BP_SYST 97; BP_DIAS 52; BP_DIAS 57; PULSE 64; PULSE 71; RESP 20; TEMP 97.9; TEMP 98; O2SAT 100; O2SAT 92
[2017-05-07 08:00] VITALS: BP 111/58; PULSE 80; RESP 17; TEMP 98.7; O2SAT 92
[2017-05-07] MEDS: INSULIN ASPART SUPPLEMENTAL SCALE SQ SCH ×4 (08:00→21:00)
[2017-05-07] MEDS: DOCUSATE SODIUM 50 MG/SENNA 8.6 MG TAB PO SCH ×2 (08:08→21:00)
[2017-05-07] MEDS: LISINOPRIL 20 MG TAB PO SCH (08:08)
[2017-05-07] MEDS: SODIUM CHLORIDE 0.9% FLUSH 10 ML FLUSH IV FLUSH SCH ×2 (08:10→21:00)
--- NOTE | 2017-05-07 08:39 | HHI.PR ---
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 followed by General usability specialist, will attempt to obtain hospital records, recommended for IV antibiotics and Interventional Radiology for Cholecystostomy tube placement, the tube will be in place for up to 6 weeks to decompress the gallbladder. no nausea, vomit or diarrhea. Objective Vital Signs Date Time Temp Pulse Resp B/P (MAP) Pulse Ox O2 Delivery O2 Flow Rate FiO2 05/07/17 04:00 98.0 71 20 97/52 (67) 92 05/07/17 00:05 98.7 87 15 122/60 (80) 95 05/06/17 18:15 98.1 82 16 114/58 (76) 91 05/06/17 16:00 97.7 73 18 92/55 (67) 93 05/06/17 12:31 98.0 84 18 140/62 (88) 95 05/06/17 11:45 89 16 94/51 (65) 93 05/06/17 11:15 85 16 87/46 (60) 94 05/06/17 10:45 88 16 102/69 (80) 93 05/06/17 10:15 90 16 103/45 (64) 94 05/06/17 10:00 98.1 88 16 96/48 (64) 91 I/O 05/06/17 05/06/17 05/06/17 05/07/17 05/07/17 05/07/17 07:00 15:00 23:00 07:00 15:00 23:00 Intake Total 360 ml 480 ml 200 ml Output Total 500 ml 55 ml 405 ml 520 ml Balance -140 ml -55 ml 75 ml -320 ml Intake Oral 360 ml 480 ml 200 ml Output Urine Total 500 ml 400 ml 500 ml Drainage Total 55 ml 5 ml 20 ml # Bowel Movements 0 0 0 Result Diagram: 05/06/1761705/06/17617 Imaging Last Impressions Percutaneous Cholangiogram 05/06/17 0000 Signed Impressions: Service Date/Time: April 09:13 - CONCLUSION: Uncomplicated percutaneous cholecystostomy as above. Aakash Parnell MD Chest X-Ray 05/05/17 0210 Signed Impressions: Service Date/Time: Friday, May 05, 2017 14:13 - CONCLUSION: No acute disease. Abel Morocho MD Aorta CTA 05/05/17 1335 Signed Impressions: Service Date/Time: Friday, May 05, 2017 17:29 - CONCLUSION: 1. The aorta is intact. There are scattered atherosclerotic calcifications. 2. Induration in the fat surrounding the gallbladder in the right upper quadrant with a small amount of free fluid in the right paracolic gutter region. Cholecystitis could have this appearance. The patient does have a biliary stent in place. There is pneumobilia. 3. Masslike area seen in the uncinate process measuring approximately 3 cm. This should be correlated with the patient's known history. The patient has a pre-existing biliary stent in place. 4. Scattered colonic diverticula. 5. Bibasilar areas of consolidation or atelectasis being worse on the right. 6. Mild hepatic steatosis. Seth Adams MD Gall Bladder Ultrasound 05/05/17 0000 Signed Impressions: Service Date/Time: Friday, May 05, 2017 20:41 - CONCLUSION: 1. Cholelithiasis with thickened gallbladder wall and pericholecystic fluid thought tot represent cholecystitis. 2. Pancreatic mass. 3. Biliary stent. Pneumobilia is present. Seth Adams MD Procedures Cholecystostomy tube placement. Other Results Laboratory Tests Test 05/05/17 14:00 05/05/17 17:16 05/06/17 06:18 Prothrombin Time 10.6 SEC Prothromb Time International Ratio 1.0 RATIO Blood Urea Nitrogen 24 MG/DL 26 MG/DL Creatinine 0.99 MG/DL 1.32 MG/DL Random Glucose 204 MG/DL 164 MG/DL Total Protein 8.3 GM/DL 6.7 GM/DL Albumin 3.4 GM/DL 2.5 GM/DL Calcium Level 10.0 MG/DL 9.0 MG/DL Magnesium Level 1.6 MG/DL Alkaline Phosphatase 100 U/L 76 U/L Aspartate Amino Transf (AST/SGOT) 22 U/L 17 U/L Alanine Aminotransferase (ALT/SGPT) 22 U/L 18 U/L Total Bilirubin 0.8 MG/DL 1.0 MG/DL Sodium Level 136 MEQ/L 140 MEQ/L Potassium Level 3.8 MEQ/L 3.3 MEQ/L Chloride Level 97 MEQ/L 101 MEQ/L Carbon Dioxide Level 29.0 MEQ/L 29.6 MEQ/L Troponin I LESS THAN 0.02 NG/ML Lipase 58 U/L Urine Color YELLOW Urine Turbidity CLEAR Urine pH 6.5 Urine Specific [place] 1.018 Urine Protein 30 mg/dL Urine Glucose (UA) 70 mg/dL Urine Ketones TRACE mg/dL Urine Occult Blood TRACE Urine Nitrite NEG Urine Bilirubin NEG Urine Urobilinogen LESS THAN 2.0 MG/DL Urine Leukocyte Esterase NEG Urine RBC 1 /hpf Urine WBC LESS THAN 1 /hpf Urine Amorphous Sediment RARE Microscopic Urinalysis Comment CULT NOT INDICATED White Blood Count 17.2 TH/MM3 Red Blood Count 4.06 MIL/MM3 Hemoglobin 13.2 GM/DL Hematocrit 37.7 % Mean Corpuscular Volume 92.9 FL Mean Corpuscular Hemoglobin 32.5 PG Mean Corpuscular Hemoglobin Concent 35.0 % Red Cell Distribution Width 13.0 % Platelet Count 186 TH/MM3 Mean Platelet Volume 8.1 FL Neutrophils (%) (Auto) 87.7 % Lymphocytes (%) (Auto) 3.4 % Monocytes (%) (Auto) 8.9 % Eosinophils (%) (Auto) 0.0 % Basophils (%) (Auto) 0.0 % Neutrophils # (Auto) 15.1 TH/MM3 Lymphocytes # (Auto) 0.6 TH/MM3 Monocytes # (Auto) 1.5 TH/MM3 Eosinophils # (Auto) 0.0 TH/MM3 Basophils # (Auto) 0.0 TH/MM3 CBC Comment DIFF FINAL Differential Comment Anion Gap 9 MEQ/L Estimat Glomerular Filtration Rate 51 ML/MIN Hemoglobin A1c 6.5 % Objective Remarks GENERAL: well developed, no acute distress. SKIN: Warm and dry. HEAD: Atraumatic. Normocephalic. EYES: Pupils equal and round. No scleral icterus. No injection or drainage. ENT: No nasal bleeding or discharge. Mucous membranes pink and moist. NECK: Trachea midline. No JVD. CARDIOVASCULAR: Regular rate and rhythm. RESPIRATORY: No accessory muscle use. Clear to auscultation. Breath sounds equal bilaterally. GASTROINTESTINAL: Abdomen soft, non-tender, Cholecystostomy tube in place. MUSCULOSKELETAL: Extremities without clubbing, cyanosis, or edema. No obvious deformities. NEUROLOGICAL: Awake and alert. No obvious cranial nerve deficits. Motor grossly within normal limits. Five out of 5 muscle strength in the arms and legs. Normal speech. PSYCHIATRIC: Appropriate mood and affect; insight and judgment normal. Medications and IVs Current Medications Medications (Trade) Dose Ordered Sig/Hayden Route Start Time Stop Time Status Last Admin (Morphine Inj) 4 mg Q3H PRN IV PUSH 05/05/17 21:00 05/06/17 22:20 Piperacillin Sod/ Tazobactam Sod 50 ml @ 100 mls/hr Q6H IV 05/06/17 02:00 05/07/17 08:08 (NS Flush) 2 ml UNSCH PRN IV FLUSH 05/05/17 21:00 (NS Flush) 2 ml BID IV FLUSH 05/05/17 21:00 05/07/17 08:10 (Tylenol) 650 mg Q4H PRN PO 05/05/17 21:00 05/07/17 01:06 (Zofran Inj) 4 mg Q6H PRN IVP 05/05/17 21:00 (Narcan Inj) 0.4 mg UNSCH PRN IV PUSH 05/05/17 21:00 (Jadyn-Colace) 1 tab BID PO 05/05/17 21:00 05/07/17 08:08 (Milk Of Magnesia Liq) 30 ml Q12H PRN PO 05/05/17 21:00 (Senokot) 17.2 mg Q12H PRN PO 05/05/17 21:00 (Dulcolax Supp) 10 mg DAILY PRN RECTAL 05/05/17 21:00 (Lactulose Liq) 30 ml DAILY PRN PO 05/05/17 21:00 (Norvasc) 5 mg BID PO 05/05/17 21:00 Future Hold 05/05/17 22:53 (Prinivil) 20 mg DAILY PO 05/06/17 09:00 05/07/17 08:08 (D50w (Vial) Inj) 50 ml UNSCH PRN IV PUSH 05/06/17 13:15 (Glucagon Inj) 1 mg UNSCH PRN OTHER 05/06/17 13:15 (NovoLOG SUPPLEMENTAL SCALE) 1 ACHS SLIDING SCALE SQ 05/06/17 17:00 05/06/17 21:04 Sodium Chloride 1,000 ml @ 84 mls/hr [id number] IV 05/06/17 15:00 05/06/17 15:29 A/P Assessment and Plan (1) Abdominal pain ICD Code: R10.9 - Unspecified abdominal pain Status: Acute (2) Acute cholecystitis ICD Code: K81.0 - Acute cholecystitis Status: Acute (3) Pancreatic mass ICD Code: K86.9 - Disease of pancreas, unspecified Status: Acute (4) History of biliary stent insertion ICD Code: Z98.890 - Other specified postprocedural states Status: Acute Sepsis leukocytosis 15.4, 90% Neutrophils, heart rate more than 100 per minute, to continue Zosyn, following blood cultures, UA negative Acute Kidney injury creatinine 1.32, to continue IV fluids. CT of the abdomen and pelvis does not show any hydronephrosis or obstruction 1. Acute Cholecystitis CT significant for induration in the fat surrounding the gallbladder in the right upper quadrant with a small amount of free fluid in the right. Colic gutter region, concerning for cholecystitis Patient with leukocytosis of 15.4 now improved. Zosyn Status post Cholecystostomy tube placement awaiting for General surgery technician clearance for discharge. 2. Pancreatic mass CT of the abdomen/pelvis shows a masslike area seen in the uncinate process measuring approximately 3 cm Patient with known history of pancreatic mass with previous biopsy that was inconclusive Patient will likely need to follow-up as an outpatient with his physicians 3. Hypertension Controlled. 4. Hypokalemia replaced. 5. Hyperglycemia on sliding scale, asked for hemoglobin A1C 6.5 DVT prophylaxis with SCDs. Discharge Planning Expected by tomorrow. Clifford Marley MD May 07, 2017 08:39
[2017-05-07 10:41] LABS: BASOPHIL % 0.2 % (0.0-2.0); EOSINOPHIL % 0.3 % (0.0-4.0); HEMATOCRIT 36.3 % (39.0-51.0); HEMOGLOBIN 12.5 GM/DL (13.0-17.0); LYMPH % 8.3 % (9.0-44.0); LYMPHOCYTE # 0.8 TH/MM3 (1.0-4.8); MEAN CELL VOLUME 93.4 FL (80.0-100.0); MEAN CORPUSCULAR HEMOGLOBIN 32.2 PG (27.0-34.0); MEAN CORPUSCULAR HGB CONC 34.4 % (32.0-36.0); MEAN PLATELET VOLUME 8.4 FL (7.0-11.0); MONO % 4.9 % (0.0-8.0); MONOCYTE # 0.5 TH/MM3 (0-0.9); NEUT % 86.3 % (16.0-70.0); PLATELET COUNT 178 TH/MM3 (150-450); RED BLOOD COUNT 3.89 MIL/MM3 (4.50-5.90); RED CELL DISTRIBUTION WIDTH 13.2 % (11.6-17.2); WHITE BLOOD COUNT 9.2 TH/MM3 (4.0-11.0)
[2017-05-07 11:01] LABS: BICARBONATE 26.4 MEQ/L (21.0-32.0); CALCIUM 8.2 MG/DL (8.5-10.1); CREATININE 1.61 MG/DL (0.60-1.30); MAGNESIUM 1.8 MG/DL (1.5-2.5); PHOSPHORUS 2.4 MG/DL (2.5-4.9)
[2017-05-07 11:15] LABS: BANDS 17 % (0-6); LYMPHOCYTES 11 % (9-44); MONOCYTES 2 % (0-8); NEUTROPHIL # MANUAL DIFF 7.9 TH/MM3 (1.8-7.7); POLYS (SEG NEUTROPHILS) 69 % (16-70)
[2017-05-07] MEDS ORDERED: AUGM875T3 PO (11:15)
[2017-05-07] MEDS ORDERED: NORC5TAB PO (11:15)
--- NOTE | 2017-05-07 11:24 | HHI.PR ---
cc: Lincoln Callahan MD Subjective Subjective Notes Resting in bed No issues overnight Feeling much better after tube has been placed Objective Vitals/I&O Vital Signs Date Time Temp Pulse Resp B/P (MAP) Pulse Ox O2 Delivery O2 Flow Rate FiO2 05/07/17 08:00 98.7 80 17 111/58 (75) 92 05/05/17 18:32 Room Air Labs Laboratory Tests Test 05/07/17 10:03 White Blood Count 9.2 Red Blood Count 3.89 Hemoglobin 12.5 Hematocrit 36.3 Mean Corpuscular Volume 93.4 Mean Corpuscular Hemoglobin 32.2 Mean Corpuscular Hemoglobin Concent 34.4 Red Cell Distribution Width 13.2 Platelet Count 178 Mean Platelet Volume 8.4 Neutrophils (%) (Auto) 86.3 Lymphocytes (%) (Auto) 8.3 Monocytes (%) (Auto) 4.9 Eosinophils (%) (Auto) 0.3 Basophils (%) (Auto) 0.2 Neutrophils # (Auto) 8.0 Lymphocytes # (Auto) 0.8 Monocytes # (Auto) 0.5 Eosinophils # (Auto) 0.0 Basophils # (Auto) 0.0 CBC Comment AUTO DIFF Differential Total Cells Counted 100 Neutrophils % (Manual) 69 Band Neutrophils % 17 Lymphocytes % 11 Monocytes % 2 Eosinophils % 1 Neutrophils # (Manual) 7.9 Differential Comment FINAL DIFF MANUAL Platelet Estimate NORMAL Platelet Morphology Comment NORMAL Red Cell Morphology Comment NORMAL Blood Urea Nitrogen 45 Creatinine 1.61 Random Glucose 179 Calcium Level 8.2 Phosphorus Level 2.4 Magnesium Level 1.8 Sodium Level 134 Potassium Level 3.2 Chloride Level 98 Carbon Dioxide Level 26.4 Anion Gap 10 Estimat Glomerular Filtration Rate 41 Cardiovascular: Regular Lungs: Clear Abdomen: Other (Romina tube in place with bilious drainage; mild tenderness with palpation over abdomen ) Extremities: No edema A/P Assessment and Plan 89 year old male with acute cholecystitis with cholelithiasis; history of pancreatic mass with biliary stents in place -WBC improved -Continue Zosyn through today; transition to PO Augmentin tomorrow -Continue cholecystostomy tube to gravity drainage -Full liquids for lunch; advance to heart healthy diet for dinner -Patient from [facility]; planning to return there for follow up -If continues to improve I think it would be reasonable to DC the patient tomorrow with cholecystostomy drain in place -I have left prescriptions for [place] and Augmentin on the chart Attending Statement patient seen at bedside pt much improved no fevers d/c planning f/u with surgeon in home town tube to gravity leg bag await hospital records Attestation The exam, history, and the medical decision-making described in the above note were completed with the assistance of the mid-level provider. I reviewed and agree with the findings presented. I attest that I had a [id number] encounter with the patient on the same day, and personally performed and documented my assessment and findings in the medical record. Christina Theodore/Machinist Linotype ARNP May 07, 2017 11:24 Lincoln Callahan MD May 12, 2017 09:36
[2017-05-07 12:00] VITALS: BP 110/60; PULSE 76; RESP 16; TEMP 97.4; O2SAT 91
[2017-05-07] MEDS: SODIUM CHLOR 0.9% 1000 ML INJ 1,000 ML IV SCH ×2 (14:50→21:51)
[2017-05-07 16:00] VITALS: BP 108/57; PULSE 77; RESP 16; TEMP 97.1; O2SAT 90
[2017-05-07] MEDS ORDERED: POTASSIUM CHLORIDE 20 MEQ CONTROLLED RELEASE TAB PO ONE ×2 (18:30→21:00)
[2017-05-07] MEDS: MAGNESIUM SULFATE 1 GM PREMIX 100 ML IV SCH ×2 (19:08→21:44)
[2017-05-07 20:00] VITALS: BP 134/58; PULSE 85; RESP 18; TEMP 98.8; O2SAT 93
[2017-05-08] VITALS: BP 121/59; PULSE 88; RESP 16; TEMP 98.6; O2SAT 94
[2017-05-08] MEDS: PIPERACIL-TAZO 3.375 GM PREMIX 50 ML IV SCH ×2 (02:15→07:49)
[2017-05-08 07:45] LABS: CALCIUM 8.4 MG/DL (8.5-10.1); CREATININE 1.29 MG/DL (0.60-1.30)
[2017-05-08] MEDS: INSULIN ASPART SUPPLEMENTAL SCALE SQ SCH ×2 (07:49→12:49)
[2017-05-08 08:00] VITALS: BP 131/73; PULSE 87; RESP 16; TEMP 98.6; O2SAT 94
[2017-05-08] MEDS: SODIUM CHLORIDE 0.9% FLUSH 10 ML FLUSH IV FLUSH SCH (09:43)
[2017-05-08] MEDS: DOCUSATE SODIUM 50 MG/SENNA 8.6 MG TAB PO SCH (09:43)
[2017-05-08] MEDS: SODIUM CHLOR 0.9% 1000 ML INJ 1,000 ML IV SCH (11:18)
[2017-05-08 12:00] VITALS: BP 114/58; PULSE 81; RESP 16; TEMP 98.4; O2SAT 93
--- NOTE | 2017-05-08 12:00 | HHI.PR ---
Subjective Subjective Notes Patient complains of some discomfort around drain exit site. Otherwise feels fine. He is anxious to get home to [facility] and follow-up with his physicians there. Objective Vitals/I&O Vital Signs Date Time Temp Pulse Resp B/P (MAP) Pulse Ox O2 Delivery O2 Flow Rate FiO2 05/08/17 08:00 98.6 87 16 131/73 (92) 94 05/05/17 18:32 Room Air Labs Laboratory Tests Test 05/08/17 06:25 Blood Urea Nitrogen 39 Creatinine 1.29 Random Glucose 118 Calcium Level 8.4 Sodium Level 137 Potassium Level 3.6 Chloride Level 102 Carbon Dioxide Level 26.0 Anion Gap 9 Estimat Glomerular Filtration Rate 52 Abdomen: Non-distended, Non-tender, Other (Drain exit site dressing is clean and dry and intact. Drain itself as bile tinged yellow serous fluid. There is no purulent drainage.) A/P Assessment and Plan Status post cholecystostomy tube for apparent cholecystitis. The patient appears very stable. From a general surgery standpoint he is clear for discharge and follow-up with his physicians in [facility]. Follow-up with us on an as-needed basis. Aakash Urbina MD May 08, 2017 12:00
--- NOTE | 2017-05-08 14:56 | HHI.PR ---
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 followed by General sales operations specialist, will attempt to obtain hospital records, recommended for IV antibiotics and Interventional Radiology for Cholecystostomy tube placement, the tube will be in place for up to 6 weeks to decompress the gallbladder. no nausea, vomit or diarrhea. 05/08: Seen in his bedroom, as per General Surgery he will need to follow with his Physicians at [facility], no nausea, vomit or diarrhea okay to discharge now. Objective Vital Signs Date Time Temp Pulse Resp B/P (MAP) Pulse Ox O2 Delivery O2 Flow Rate FiO2 05/08/17 08:00 98.6 87 16 131/73 (92) 94 05/08/17 00:00 98.6 88 16 121/59 (79) 94 05/07/17 20:00 98.8 85 18 134/58 (83) 93 05/07/17 16:00 97.1 77 16 108/57 (74) 90 I/O 05/07/17 05/07/17 05/07/17 05/08/17 05/08/17 05/08/17 07:00 15:00 23:00 07:00 15:00 23:00 Intake Total 200 ml 540 ml 1150 ml 1636 ml Output Total 520 ml 65 ml 230 ml Balance -320 ml 540 ml 1085 ml 1406 ml Intake Oral 200 ml 540 ml 360 ml IV Total 1150 ml 1276 ml Output Urine Total 500 ml 200 ml Drainage Total 20 ml 65 ml 30 ml # Voids 3 1 # Bowel Movements 0 0 4 Result Diagram: 05/07/17 1003 05/08/17 0625 Imaging Last Impressions Percutaneous Cholangiogram 05/06/17 0000 Signed Impressions: Service Date/Time: April 09:13 - CONCLUSION: Uncomplicated percutaneous cholecystostomy as above. Aakash Parnell MD Chest X-Ray 05/05/17 0795 Signed Impressions: Service Date/Time: Friday, May 05, 2017 14:13 - CONCLUSION: No acute disease. Abel Morocho MD Aorta CTA 05/05/17 7915 Signed Impressions: Service Date/Time: Friday, May 05, 2017 17:29 - CONCLUSION: 1. The aorta is intact. There are scattered atherosclerotic calcifications. 2. Induration in the fat surrounding the gallbladder in the right upper quadrant with a small amount of free fluid in the right paracolic gutter region. Cholecystitis could have this appearance. The patient does have a biliary stent in place. There is pneumobilia. 3. Masslike area seen in the uncinate process measuring approximately 3 cm. This should be correlated with the patient's known history. The patient has a pre-existing biliary stent in place. 4. Scattered colonic diverticula. 5. Bibasilar areas of consolidation or atelectasis being worse on the right. 6. Mild hepatic steatosis. Seth Adams MD Gall Bladder Ultrasound 05/05/17 0000 Signed Impressions: Service Date/Time: Friday, May 05, 2017 20:41 - CONCLUSION: 1. Cholelithiasis with thickened gallbladder wall and pericholecystic fluid thought tot represent cholecystitis. 2. Pancreatic mass. 3. Biliary stent. Pneumobilia is present. Seth Adams MD Procedures Cholecystostomy tube placement. Other Results Laboratory Tests Test 05/05/17 14:00 05/05/17 17:16 05/06/17 06:18 05/07/17 10:03 Prothrombin Time 10.6 SEC Prothromb Time International Ratio 1.0 RATIO Troponin I LESS THAN 0.02 NG/ML Lipase 58 U/L Urine Color YELLOW Urine Turbidity CLEAR Urine pH 6.5 Urine Specific [place] 1.018 Urine Protein 30 mg/dL Urine Glucose (UA) 70 mg/dL Urine Ketones TRACE mg/dL Urine Occult Blood TRACE Urine Nitrite NEG Urine Bilirubin NEG Urine Urobilinogen LESS THAN 2.0 MG/DL Urine Leukocyte Esterase NEG Urine RBC 1 /hpf Urine WBC LESS THAN 1 /hpf Urine Amorphous Sediment RARE Microscopic Urinalysis Comment CULT NOT INDICATED Hemoglobin A1c 6.5 % Blood Urea Nitrogen 26 MG/DL 45 MG/DL Creatinine 1.32 MG/DL 1.61 MG/DL Random Glucose 164 MG/DL 179 MG/DL Total Protein 6.7 GM/DL Albumin 2.5 GM/DL Calcium Level 9.0 MG/DL 8.2 MG/DL Alkaline Phosphatase 76 U/L Aspartate Amino Transf (AST/SGOT) 17 U/L Alanine Aminotransferase (ALT/SGPT) 18 U/L Total Bilirubin 1.0 MG/DL Sodium Level 140 MEQ/L 134 MEQ/L Potassium Level 3.3 MEQ/L 3.2 MEQ/L Chloride Level 101 MEQ/L 98 MEQ/L Carbon Dioxide Level 29.6 MEQ/L 26.4 MEQ/L White Blood Count 9.2 TH/MM3 Red Blood Count 3.89 MIL/MM3 Hemoglobin 12.5 GM/DL Hematocrit 36.3 % Mean Corpuscular Volume 93.4 FL Mean Corpuscular Hemoglobin 32.2 PG Mean Corpuscular Hemoglobin Concent 34.4 % Red Cell Distribution Width 13.2 % Platelet Count 178 TH/MM3 Mean Platelet Volume 8.4 FL Neutrophils (%) (Auto) 86.3 % Lymphocytes (%) (Auto) 8.3 % Monocytes (%) (Auto) 4.9 % Eosinophils (%) (Auto) 0.3 % Basophils (%) (Auto) 0.2 % Neutrophils # (Auto) 8.0 TH/MM3 Lymphocytes # (Auto) 0.8 TH/MM3 Monocytes # (Auto) 0.5 TH/MM3 Eosinophils # (Auto) 0.0 TH/MM3 Basophils # (Auto) 0.0 TH/MM3 CBC Comment AUTO DIFF Differential Total Cells Counted 100 Neutrophils % (Manual) 69 % Band Neutrophils % 17 % Lymphocytes % 11 % Monocytes % 2 % Eosinophils % 1 % Neutrophils # (Manual) 7.9 TH/MM3 Differential Comment FINAL DIFF MANUAL Platelet Estimate NORMAL Platelet Morphology Comment NORMAL Red Cell Morphology Comment NORMAL Phosphorus Level 2.4 MG/DL Magnesium Level 1.8 MG/DL Test 05/08/17 06:25 Blood Urea Nitrogen 39 MG/DL Creatinine 1.29 MG/DL Random Glucose 118 MG/DL Calcium Level 8.4 MG/DL Sodium Level 137 MEQ/L Potassium Level 3.6 MEQ/L Chloride Level 102 MEQ/L Carbon Dioxide Level 26.0 MEQ/L Anion Gap 9 MEQ/L Estimat Glomerular Filtration Rate 52 ML/MIN Objective Remarks GENERAL: well developed, no acute distress. SKIN: Warm and dry. HEAD: Atraumatic. Normocephalic. EYES: Pupils equal and round. No scleral icterus. No injection or drainage. ENT: No nasal bleeding or discharge. Mucous membranes pink and moist. NECK: Trachea midline. No JVD. CARDIOVASCULAR: Regular rate and rhythm. RESPIRATORY: No accessory muscle use. Clear to auscultation. Breath sounds equal bilaterally. GASTROINTESTINAL: Abdomen soft, non-tender, Cholecystostomy tube in place. MUSCULOSKELETAL: Extremities without clubbing, cyanosis, or edema. No obvious deformities. NEUROLOGICAL: Awake and alert. No obvious cranial nerve deficits. Motor grossly within normal limits. Five out of 5 muscle strength in the arms and legs. Normal speech. PSYCHIATRIC: Appropriate mood and affect; insight and judgment normal. Medications and IVs Current Medications Medications (Trade) Dose Ordered Sig/Hayden Route Start Time Stop Time Status Last Admin (Morphine Inj) 4 mg Q3H PRN IV PUSH 05/05/17 21:00 05/06/17 22:20 Piperacillin Sod/ Tazobactam Sod 50 ml @ 100 mls/hr Q6H IV 05/06/17 02:00 05/08/17 07:49 (NS Flush) 2 ml UNSCH PRN IV FLUSH 05/05/17 21:00 (NS Flush) 2 ml BID IV FLUSH 05/05/17 21:00 05/08/17 09:43 (Tylenol) 650 mg Q4H PRN PO 05/05/17 21:00 05/07/17 10:20 (Zofran Inj) 4 mg Q6H PRN IVP 05/05/17 21:00 (Narcan Inj) 0.4 mg UNSCH PRN IV PUSH 05/05/17 21:00 (Jadyn-Colace) 1 tab BID PO 05/05/17 21:00 05/08/17 09:43 (Milk Of Magnesia Liq) 30 ml Q12H PRN PO 05/05/17 21:00 (Senokot) 17.2 mg Q12H PRN PO 05/05/17 21:00 05/07/17 16:58 (Dulcolax Supp) 10 mg DAILY PRN RECTAL 05/05/17 21:00 (Lactulose Liq) 30 ml DAILY PRN PO 05/05/17 21:00 05/07/17 16:58 (Norvasc) 5 mg BID PO 05/05/17 21:00 Future Hold 05/05/17 22:53 (D50w (Vial) Inj) 50 ml UNSCH PRN IV PUSH 05/06/17 13:15 (Glucagon Inj) 1 mg UNSCH PRN OTHER 05/06/17 13:15 (NovoLOG SUPPLEMENTAL SCALE) 1 ACHS SLIDING SCALE SQ 05/06/17 17:00 05/08/17 12:49 Sodium Chloride 1,000 ml @ 100 mls/hr Q10H IV 05/06/17 15:00 05/07/17 21:51 A/P Assessment and Plan (1) Abdominal pain ICD Code: R10.9 - Unspecified abdominal pain Status: Acute (2) Acute cholecystitis ICD Code: K81.0 - Acute cholecystitis Status: Acute (3) Pancreatic mass ICD Code: K86.9 - Disease of pancreas, unspecified Status: Acute (4) History of biliary stent insertion ICD Code: Z98.890 - Other specified postprocedural states Status: Acute 1. Acute Cholecystitis CT significant for induration in the fat surrounding the gallbladder in the right upper quadrant with a small amount of free fluid in the right. Colic gutter region, concerning for cholecystitis Patient with leukocytosis of 15.4 now improved. Zosyn Status post Cholecystostomy tube placement awaiting for General instrument specialist clearance for discharge. and follow with his Physicians at [facility]. 2. Pancreatic mass CT of the abdomen/pelvis shows a masslike area seen in the uncinate process measuring approximately 3 cm Patient with known history of pancreatic mass with previous biopsy that was inconclusive Patient will likely need to follow-up as an outpatient with his physicians 3. Hypertension Controlled. 4. Hypokalemia replaced. 5. Hyperglycemia on sliding scale, asked for hemoglobin A1C 6.5 6. Sepsis leukocytosis 15.4, 90% Neutrophils, heart rate more than 100 per minute, was on Zosyn will let him go on I will continue Augmentin plus Flagyl 7. Acute Kidney injury creatinine CT of the abdomen and pelvis does not show any hydronephrosis or obstruction Improved. DVT prophylaxis with SCDs. Discharge Planning Expected by tomorrow. Clifford Marley MD May 08, 2017 14:56
--- NOTE | 2017-05-08 15:02 | HHI.DS ---
Discharge Summary Admission Date May 05, 2017 at 19:31 Discharge Date: May 08, 2017 Admitting Diagnosis abdominal pain, acute cholecystitis, intracranial mass, biliary sten (1) Abdominal pain ICD Code: R10.9 - Unspecified abdominal pain Diagnosis: Principal Status: Acute (2) Acute cholecystitis ICD Code: K81.0 - Acute cholecystitis Diagnosis: Principal Status: Acute (3) Pancreatic mass ICD Code: K86.9 - Disease of pancreas, unspecified Diagnosis: Principal Status: Acute (4) History of biliary stent insertion ICD Code: Z98.890 - Other specified postprocedural states Diagnosis: Principal Status: Acute Procedures Cholecystostomy tube placement. 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 The patient reports the pain started this morning is in the epigastrium and radiates to his bilateral sides. He denies any nausea/vomiting. Denies subjective fever but endorses chills. The patient had a biliary stent placed with a biopsy of a pancreatic mass in January of last year. The biopsy reportedly came back inconclusive. Patient denies nausea/vomiting/diarrhea. He denies chest pain or shortness of breath. No lateralizing signs/symptoms. CBC/BMP: 05/07/17 1003 05/08/17 0625 Significant Findings Laboratory Tests Test 05/05/17 17:16 05/06/17 06:18 05/07/17 10:03 05/08/17 06:25 Urine Protein 30 mg/dL (NEG-TRACE) Urine Glucose (UA) 70 mg/dL (NEG) Urine Ketones TRACE mg/dL (NEG) Urine Occult Blood TRACE (NEG) White Blood Count 17.2 TH/MM3 (4.0-11.0) Red Blood Count 4.06 MIL/MM3 (4.50-5.90) 3.89 MIL/MM3 (4.50-5.90) Hematocrit 37.7 % (39.0-51.0) 36.3 % (39.0-51.0) Neutrophils (%) (Auto) 87.7 % (16.0-70.0) 86.3 % (16.0-70.0) Lymphocytes (%) (Auto) 3.4 % (9.0-44.0) 8.3 % (9.0-44.0) Monocytes (%) (Auto) 8.9 % (0.0-8.0) Neutrophils # (Auto) 15.1 TH/MM3 (1.8-7.7) 8.0 TH/MM3 (1.8-7.7) Lymphocytes # (Auto) 0.6 TH/MM3 (1.0-4.8) 0.8 TH/MM3 (1.0-4.8) Monocytes # (Auto) 1.5 TH/MM3 (0-0.9) Blood Urea Nitrogen 26 MG/DL (7-18) 45 MG/DL (7-18) 39 MG/DL (7-18) Creatinine 1.32 MG/DL (0.60-1.30) 1.61 MG/DL (0.60-1.30) Random Glucose 164 MG/DL (74-106) 179 MG/DL (74-106) 118 MG/DL (74-106) Albumin 2.5 GM/DL (3.4-5.0) Potassium Level 3.3 MEQ/L (3.5-5.1) 3.2 MEQ/L (3.5-5.1) Estimat Glomerular Filtration Rate 51 ML/MIN (>89) 41 ML/MIN (>89) 52 ML/MIN (>89) Hemoglobin A1c 6.5 % (4.3-6.0) Hemoglobin 12.5 GM/DL (13.0-17.0) Band Neutrophils % 17 % (0-6) Neutrophils # (Manual) 7.9 TH/MM3 (1.8-7.7) Calcium Level 8.2 MG/DL (8.5-10.1) 8.4 MG/DL (8.5-10.1) Phosphorus Level 2.4 MG/DL (2.5-4.9) Sodium Level 134 MEQ/L (136-145) Imaging Last Impressions Percutaneous Cholangiogram 05/06/17 0000 Signed Impressions: Service Date/Time: April 09:13 - CONCLUSION: Uncomplicated percutaneous cholecystostomy as above. Aakash Parnell MD Chest X-Ray [id number] Signed Impressions: Service Date/Time: Friday, May 05, 2017 14:13 - CONCLUSION: No acute disease. Abel Morocho MD Aorta CTA [id number] Signed Impressions: Service Date/Time: Friday, May 05, 2017 17:29 - CONCLUSION: 1. The aorta is intact. There are scattered atherosclerotic calcifications. 2. Induration in the fat surrounding the gallbladder in the right upper quadrant with a small amount of free fluid in the right paracolic gutter region. Cholecystitis could have this appearance. The patient does have a biliary stent in place. There is pneumobilia. 3. Masslike area seen in the uncinate process measuring approximately 3 cm. This should be correlated with the patient's known history. The patient has a pre-existing biliary stent in place. 4. Scattered colonic diverticula. 5. Bibasilar areas of consolidation or atelectasis being worse on the right. 6. Mild hepatic steatosis. Seth Adams MD Gall Bladder Ultrasound 05/05/17 0000 Signed Impressions: Service Date/Time: Friday, May 05, 2017 20:41 - CONCLUSION: 1. Cholelithiasis with thickened gallbladder wall and pericholecystic fluid thought tot represent cholecystitis. 2. Pancreatic mass. 3. Biliary stent. Pneumobilia is present. Seth Adams MD PE at Discharge GENERAL: well developed, no acute distress. SKIN: Warm and dry. HEAD: Atraumatic. Normocephalic. EYES: Pupils equal and round. No scleral icterus. No injection or drainage. ENT: No nasal bleeding or discharge. Mucous membranes pink and moist. NECK: Trachea midline. No JVD. CARDIOVASCULAR: Regular rate and rhythm. RESPIRATORY: No accessory muscle use. Clear to auscultation. Breath sounds equal bilaterally. GASTROINTESTINAL: Abdomen soft, non-tender, Cholecystostomy tube in place. MUSCULOSKELETAL: Extremities without clubbing, cyanosis, or edema. No obvious deformities. NEUROLOGICAL: Awake and alert. No obvious cranial nerve deficits. Motor grossly within normal limits. Five out of 5 muscle strength in the arms and legs. Normal speech. PSYCHIATRIC: Appropriate mood and affect; insight and judgment normal. 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 followed by General multimedia specialist, will attempt to obtain hospital records, recommended for IV antibiotics and Interventional Radiology for Cholecystostomy tube placement, the tube will be in place for up to 6 weeks to decompress the gallbladder. no nausea, vomit or diarrhea. 05/08: Seen in his bedroom, as per General Surgery he will need to follow with his Physicians at [facility], no nausea, vomit or diarrhea okay to discharge now. Assessment and Plan (1) Abdominal pain ICD Code: R10.9 - Unspecified abdominal pain Status: Acute (2) Acute cholecystitis ICD Code: K81.0 - Acute cholecystitis Status: Acute (3) Pancreatic mass ICD Code: K86.9 - Disease of pancreas, unspecified Status: Acute (4) History of biliary stent insertion ICD Code: Z98.890 - Other specified postprocedural states Status: Acute 1. Acute Cholecystitis CT significant for induration in the fat surrounding the gallbladder in the right upper quadrant with a small amount of free fluid in the right. Colic gutter region, concerning for cholecystitis Patient with leukocytosis of 15.4 now improved. Zosyn Status post Cholecystostomy tube placement awaiting for General medical billing specialist clearance for discharge. and follow with his Physicians at [facility]. 2. Pancreatic mass CT of the abdomen/pelvis shows a masslike area seen in the uncinate process measuring approximately 3 cm Patient with known history of pancreatic mass with previous biopsy that was inconclusive Patient will likely need to follow-up as an outpatient with his physicians 3. Hypertension Controlled. 4. Hypokalemia replaced. 5. Hyperglycemia on sliding scale, asked for hemoglobin A1C 6.5 6. Sepsis leukocytosis 15.4, 90% Neutrophils, heart rate more than 100 per minute, was on Zosyn will let him go on I will continue Augmentin plus Flagyl 7. Acute Kidney injury creatinine CT of the abdomen and pelvis does not show any hydronephrosis or obstruction Improved. DVT prophylaxis with SCDs. Discharge Planning Discharge home now. Pt Condition on Discharge: Good Discharge Disposition: Discharge Home Discharge Time: <= 30 minutes Discharge Instructions DIET: Follow Instructions for: Heart Healthy Diet Activities you can perform: Regular-No Restrictions Clifford Marley MD May 08, 2017 15:02
[2017-05-09] MEDS ORDERED: LISI-515 PO (20:55)
== END 2017-05-08 18:36 | disposition home or self-care (01) | DRG 872 ==
LOC: NEPC 13:03 → NEDA 19:31 → N06B 21:57
PROVIDERS: ADMIT Internal Medicine; ATTEND Internal Medicine
PROC: 0F9430Z Drainage of Gallbladder with Drainage Device, Percutaneous Approach (ICD-10-PCS; principal; 2017-05-06)
DX: A41.9 Sepsis, unspecified organism (principal); N17.9 Acute kidney failure, unspecified; K80.00 Calculus of gallbladder with acute cholecystitis without obstruction; I10 Essential (primary) hypertension; K86.9 Disease of pancreas, unspecified; R00.0 Tachycardia, unspecified; E87.6 Hypokalemia; R73.9 Hyperglycemia, unspecified; Z87.891 Personal history of nicotine dependence; Z96.653 Presence of artificial knee joint, bilateral
CPT/HCPCS: 71045; 71275; 74174; 75989; 76705; 80048; 80053; 81001; 82948; 83036; 83690; 83735; 84100; 84484; 85007; 85025; 85027; 85610; 93005; 96361; 96374; 96375; 99152; 99153; C1729; C1769; J1815; J2250; J2270; J2405; J2543; J3010; J3370; J3475; J3480; J7030; J7040; Q9967

== ENCOUNTER 2017-05-09 20:11 | Observation (INO) | payer MEDICARE, OTHER ==
[~2017-05-09] VITALS: Ht 170.2 cm; Wt 70.0 kg
[~2017-05-09 20:11] MED LIST: AMLO5TAB2 PO; AUGM875T3 PO; CHOL5000 PO; NORC5TAB PO
[2017-05-09 20:20] VITALS: BP 160/60; PULSE 115; RESP 18; TEMP 97.3; O2SAT 96
[2017-05-09 20:42] VITALS: BP 168/80; PULSE 105; RESP 18; O2SAT 96
[2017-05-09 20:53] VITALS: RESP 18; O2SAT 96
[2017-05-09] MEDS ORDERED: LISI-515 PO (20:55)
--- NOTE | 2017-05-09 21:05 | PD ---
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 emergency department with a history of decreased output from his biliary drain since last night. The patient's daughter reports that typically the drain was being emptied 3 times per day. The drain was originally placed on Wednesday of this past week. The patient was discharged from the hospital last night. The patient last had the drain bag emptied at 1 PM. At that time approximately 80 mL were drained. She reports that there has not been much drainage since then. She is concerned that it may be blocked. The patient reports having some postprocedural discomfort that has not increased with time. He denies having any nausea or vomiting. He denies having any jaundice. He reports that he last moved his bowels earlier today. He reports that the stool is dark brown in color. He denies having any urinary symptoms. He denies having any darkening of his urine. He denies having any fevers or chills. On review of systems otherwise, the patient denies having any cough, congestion, neck pain, chest pain, shortness of breath, or neurologic symptoms. [facility] Past Medical History Narrative Medical The patient's past medical history is significant for hypertension, history of pancreatic mass status post biliary stent placement originally on January 24 Diminished Hearing: No Gastrointestinal Disorders: Yes (gallbladder and pancrease problems) Hypertension: Yes Tetanus Vaccination: Unknown Influenza Vaccination: Yes Past Surgical History Narrative Surgical The patient's past surgical history is significant for biliary drain placement, cholecystostomy tube placement during his hospitalization from May 05 - May 08. Other Surgery: Yes (stents galbladder, stents pancreas ) Social History Alcohol Use: No Tobacco Use: No Substance Use: No Allergies-Medications (Allergen,Severity, Reaction): Coded Allergies: No Known Allergies (Verified Allergy, Unknown, 05/09/17) Reported Meds & Prescriptions Reported Meds & Active Scripts Active [place] (Hydrocodone-Acetaminophen) 5 Mg-325 Mg Tab 1 Tab PO Q4H PRN Augmentin (Amoxicillin-Clavulanate) 875-125 Mg Tab 1 Tab PO BID 5 Days Reported Lisinopril 20 Mg Tab 20 Mg PO DAILY Amlodipine (Amlodipine Besylate) 5 Mg Tab 5 Mg PO BID Vitamin D3 (Cholecalciferol) 5,000 Unit Cap 5,000 Units PO DAILY Review of Systems Except as stated in HPI: all other systems reviewed are Neg General / Constitutional: No: Fever Eyes: No: Visual changes HENT: No: Headaches Cardiovascular: No: Chest Pain or Discomfort Respiratory: No: Shortness of Breath Gastrointestinal: Positive: Abdominal Pain, No: Nausea, Vomiting, Diarrhea Genitourinary: No: Dysuria Musculoskeletal: No: Pain Skin: No Rash Neurologic: No: Weakness Psychiatric: No: Depression Endocrine: No: Polydipsia Hematologic/Lymphatic: No: Easy Bruising Physical Exam Narrative General: The patient is a well-developed well-nourished male in no acute distress. Head and Neck exam: Head is normocephalic atraumatic. Eyes: EOMI, pupils are equal round and reactive to light. Nose: Midline septum with pink mucous membranes Mouth: Dentition unremarkable. Moist mucus membranes. Posterior oropharynx is not erythematous. No tonsillar hypertrophy. Uvula midline. Airway patent. Neck: No palpable lymphadenopathy. No nuchal rigidity. No thyromegaly. Cardiovascular: Irregularly irregular with a rate in the 90s to low 100 without murmurs, gallops , or rubs. No pulse deficit to the extremities on simultaneous auscultation and palpation of his radial artery. Occasional premature ventricular complexes are noted on telemetry. Lungs: Clear to auscultation bilaterally. No wheezes, rhonchi, or rales. Abdomen: Soft, with reported discomfort on palpation near the site of his cholecystostomy drain placement. There appears to be drainage that is yellow in the tube. There is a scant amount of blood tinged fluid noted. No guarding , rebound, or rigidity. Normal bowel sounds are audible. No tenderness on palpation of McBurney's point. Negative Blackmon sign. Extremities: No clubbing, cyanosis, or edema. 2+ pulses in all 4 extremities. No calf tenderness on palpation. Back: No costovertebral angle tenderness to palpation. Neurologic Exam: Grossly nonfocal. Skin Exam: No rash noted. Intact skin that is warm and dry. Data Data Last Documented VS Vital Signs Date Time Temp Pulse Resp B/P (MAP) Pulse Ox O2 Delivery O2 Flow Rate FiO2 05/09/17 20:53 18 96 Room Air 05/09/17 20:45 103 05/09/17 20:20 97.3 Orders Orders Electrocardiogram (05/09/17 20:40) Complete Blood Count With Diff (05/09/17 20:40) Comprehensive Metabolic Panel (05/09/17 20:40) Lipase (05/09/17 20:40) Magnesium (Mg) (05/09/17 20:40) Iv Access Insert/Monitor (05/09/17 20:40) Ecg Monitoring (05/09/17 20:40) Oximetry (05/09/17 20:40) Ct Abd/Pel W Iv Contrast(Rout) (05/09/17 20:56) Iohexol 350 Inj (Omnipaque 350 Inj) (05/09/17 22:09) Admit Order (Ed Use Only) (05/09/17 22:50) Labs Laboratory Tests Test 05/09/17 20:30 White Blood Count 11.4 TH/MM3 Red Blood Count 4.23 MIL/MM3 Hemoglobin 13.7 GM/DL Hematocrit 39.7 % Mean Corpuscular Volume 94.0 FL Mean Corpuscular Hemoglobin 32.5 PG Mean Corpuscular Hemoglobin Concent 34.5 % Red Cell Distribution Width 13.6 % Platelet Count 280 TH/MM3 Mean Platelet Volume 7.5 FL Neutrophils (%) (Auto) 77.6 % Lymphocytes (%) (Auto) 11.4 % Monocytes (%) (Auto) 8.9 % Eosinophils (%) (Auto) 1.8 % Basophils (%) (Auto) 0.3 % Neutrophils # (Auto) 8.9 TH/MM3 Lymphocytes # (Auto) 1.3 TH/MM3 Monocytes # (Auto) 1.0 TH/MM3 Eosinophils # (Auto) 0.2 TH/MM3 Basophils # (Auto) 0.0 TH/MM3 CBC Comment DIFF FINAL Differential Comment Blood Urea Nitrogen 29 MG/DL Creatinine 1.15 MG/DL Random Glucose 145 MG/DL Total Protein 7.4 GM/DL Albumin 2.4 GM/DL Calcium Level 8.9 MG/DL Magnesium Level 2.1 MG/DL Alkaline Phosphatase 110 U/L Aspartate Amino Transf (AST/SGOT) 22 U/L Alanine Aminotransferase (ALT/SGPT) 20 U/L Total Bilirubin 0.6 MG/DL Sodium Level 138 MEQ/L Potassium Level 3.9 MEQ/L Chloride Level 103 MEQ/L Carbon Dioxide Level 26.8 MEQ/L Anion Gap 8 MEQ/L Estimat Glomerular Filtration Rate 60 ML/MIN Lipase 61 U/L MDM Medical Decision Making Medical Screen Exam Complete: Yes Emergency Medical Condition: Yes Medical Record Reviewed: Yes Interpretation(s) Last Impressions Abdomen/Pelvis CT 05/09/172055 Signed Impressions: Service Date/Time: Tuesday, May 09, 2017 22:01 - CONCLUSION: 1. Pneumobilia, biliary stent, inflammatory changes in the right upper quadrant with abnormal appearance of the gallbladder identified. 2. Bilateral adrenal nodules. 3. There is a stent within the common bile duct and the distal tip terminates in the third portion of the duodenum. This has not changed. Jordan Shaikh MD Differential Diagnosis Dislodgment of drain,, versus decrease fluid output from drain, versus clogged drain Narrative Course During the course of the patient's emergency department visit, the patient's history, examination, and differential diagnosis were reviewed with the patient. The patient was placed on a engine monitor with oximetry and frequent blood pressure monitoring. The patient had IV access obtained and blood work sent for analysis. The patient had an EKG done on arrival that shows sinus rhythm with a heart rate of 101 with occasional premature ventricular complexes , QRS duration is 103 ms, QTC [address] segment elevation is noted. The patient's laboratory studies were reviewed and remarkable for a white count of 11.4, hemoglobin 13.7, platelets 280 with 77.6 neutrophils. This is compared to the patient's prior white blood cell count of 9.2. CMP is remarkable for a BUN of 29, glucose 145, LFTs within normal limits, albumin 2.4 , lipase 61. Radiology studies were reviewed and remarkable for a CT scan of the abdomen and pelvis that shows pneumobilia, biliary stent, inflammatory changes in the right upper quadrant with abnormal appearance of the gallbladder identified. Bilateral adrenal nodules, there is a stent within the common bile duct and the distal tip terminates in the third portion of the duodenum. This has not changed. The reading radiologist reports that there is a drainage catheter in the right upper quadrant A call was placed out the reading radiologist to discuss this further. It is lateral to the gallbladder up against the abdominal wall according to Dr. Shaikh, therefore it does appear that it has been dislodged. According to the records, this drain was intended to be in place for up to 6 weeks to decompress the gallbladder. Given this fact and the fact that the radiologist also reports that there is some inflammatory changes that are progressing in the right upper quadrant and a white blood cell count did increase compared to the last evaluation in spite of him being on oral antibiotics of Augmentin and Flagyl, the patient will be admitted for observation and replacement of his cholecystostomy tube. The patient's results were discussed with the patient, including the plan of care. I explained that further testing and/ or monitoring is indicated based on the patient's history, examination, and/ or laboratory findings. Therefore, I recommended admission for additional evaluation. The patient expressed understanding and was agreeable with this plan. The patient was admitted to the hospital in stable condition and [facility] Physician Communication Physician Communication The patient's case including history, pertinent physical examination findings, and laboratory studies were discussed with Dr. Shaikh, the radiologist, and Dr. Doshi, the hospitalist. It was agreed that the [facility] would [facility]. Diagnosis Primary Impression: Cholecystostomy tube dysfunction Qualified Codes: T85.518A - Breakdown (mechanical) of other gastrointestinal prosthetic devices, implants and grafts, initial encounter Additional Impression: Cholecystitis Admitting Information Admitting Physician Requests: Observation Bri Francis MD May 09, 2017 21:05
[2017-05-09 21:06] LABS: AUTOMATED NEUTROPHIL # 8.9 TH/MM3 (1.8-7.7); BASOPHIL % 0.3 % (0.0-2.0); EOSINOPHIL # 0.2 TH/MM3 (0-0.4); EOSINOPHIL % 1.8 % (0.0-4.0); HEMATOCRIT 39.7 % (39.0-51.0); HEMOGLOBIN 13.7 GM/DL (13.0-17.0); LYMPH % 11.4 % (9.0-44.0); LYMPHOCYTE # 1.3 TH/MM3 (1.0-4.8); MEAN CORPUSCULAR HEMOGLOBIN 32.5 PG (27.0-34.0); MEAN CORPUSCULAR HGB CONC 34.5 % (32.0-36.0); MEAN PLATELET VOLUME 7.5 FL (7.0-11.0); MONO % 8.9 % (0.0-8.0); NEUT % 77.6 % (16.0-70.0); PLATELET COUNT 280 TH/MM3 (150-450); RED BLOOD COUNT 4.23 MIL/MM3 (4.50-5.90); RED CELL DISTRIBUTION WIDTH 13.6 % (11.6-17.2); WHITE BLOOD COUNT 11.4 TH/MM3 (4.0-11.0)
[2017-05-09 21:35] LABS: ALBUMIN 2.4 GM/DL (3.4-5.0); AST (GOT) 22 U/L (15-37); BICARBONATE 26.8 MEQ/L (21.0-32.0); BLOOD UREA NITROGEN 29 MG/DL (7-18); CALCIUM 8.9 MG/DL (8.5-10.1); CHLORIDE 103 MEQ/L (98-107); CREATININE 1.15 MG/DL (0.60-1.30); GLOMERULAR FILTRATION RATE 60 ML/MIN (>89); GLUCOSE,RANDOM 145 MG/DL (74-106); MAGNESIUM 2.1 MG/DL (1.5-2.5); SODIUM (NA) 138 MEQ/L (136-145)
[2017-05-09 21:37] LABS: ALKALINE PHOSPHATASE 110 U/L (45-117); ALT (GPT) 20 U/L (12-78); TOTAL BILIRUBIN ADULT 0.6 MG/DL (0.2-1.0); TOTAL PROTEIN 7.4 GM/DL (6.4-8.2)
[2017-05-09] MEDS ORDERED: IOHEXOL 350 MG/ML 10 ML VIAL (for RAD DIAG) IVCONTRAST ONE (22:09)
--- NOTE | 2017-05-09 22:21 | RADRPT ---
EXAM DATE/TIME: 05/09/2017 22:01 [place] COMPARISON: CTA THORACIC ABDOMINAL AORTA W 3D RECON, May 05, 2017, 17:29. US ABDOMEN - GALLBLADDER, May 05, 2017, 20:41. INDICATIONS : Decreased output from biliary drain IV CONTRAST: 95 cc Omnipaque 350 (iohexol) IV ORAL CONTRAST: No oral contrast ingested. RADIATION DOSE: 9.64 CTDIvol (mGy) MEDICAL HISTORY : Hypertension. Carcinoma, pancreas. SURGICAL HISTORY : Cholecystectomy. ENCOUNTER: Initial ACUITY: 1 day PAIN SCALE: 0/10 LOCATION: abdomen TECHNIQUE: Volumetric scanning of the abdomen and pelvis was performed. Using automated exposure control and ad justment of the mA and/or kV according to patient size, radiation dose was kept as low as reasonably achievable to obtain optimal diagnostic quality images. DICOM format image data is available electro nically for review and comparison. FINDINGS: There is diffuse atherosclerotic calcification of the aorta and iliac vessels. There is a stent noted in the common bile duct. Pneumobilia, abnormal distention of the gallbladder with gallbladder wall t hickening, pericholecystic fluid, and foci of air lucency within the gallbladder lumen. There is a ri ght adrenal nodule identified, and this is unchanged. There remains prominence soft tissue at the lev el of the uncinate process of the pancreas. There is a nodule of the medial limb of the left adrenal gland also seen and unchanged. There is fluid and stranding surrounding the liver. This is unchanged. There no dilated loops of bowel to suggest obstruction. Urinary bladder is unremarkable. Diverticulo sis of the sigmoid colon and descending colon identified. There is a small right effusion, and atelec tasis at the right lung base. The osseous structures demonstrate degenerative changes of the spine. T here is a drainage catheter in the right upper quadrant, with distal tip abutting the abdominal wall musculature just lateral to the gallbladder. CONCLUSION: 1. Pneumobilia, biliary stent, inflammatory changes in the right upper quadrant with abnormal appeara nce of the gallbladder identified. 2. Bilateral adrenal nodules. 3. There is a stent within the common bile duct and the distal tip terminates in the third portion of the duodenum. This has not changed. Jordan Shaikh MD on May 09, 2017 at 22:15 Board Certified Radiologist. This report was verified electronically.
[2017-05-09] MEDS ORDERED: IOHEXOL 350 MG/ML 50 ML BTL (for RAD DIAG) OTHER ONE (22:52)
--- NOTE | 2017-05-09 23:27 | HHI.HP ---
[facility] Service [facility] Primary Care Physician Non-Staff Admission Diagnosis Dislodged Cholecystostomy tube Diagnoses: Chief Complaint: Biliary drain dislodgment Travel History International Travel<30 Days: No Contact w/Intl Traveler <30 Da: No Traveled to Known Affected Are: No History of Present Illness 89-year-old male with a past medical history of questionable pancreatic mass with biliary stent placement on 01/24 and a biliary drain placed on and hypertension presents to the ED evaluation of a possible biliary drain dislodgment. Patient daughter reports last I&D noticed a decreased output from the biliary drain was pretty significant abdominal pain to the right lower quadrant. The patient was just discharged yesterday, 05/08 and the bag was last emptied about 1 PM, and since then there has been minimal drainage. He is not sure if he had mistakenly pulled on the drain or if he has clotted off. He denies any chest pain, shortness of breath, fevers or chills, dysuria. He does complain of 3/10 abdominal pain, intermittent, throbbing, worse with movement and better with [place]. Patient is trying to get well enough to be able to travel back to [place] he is PCP and be evaluated there for possible cholecystectomy. Review of Systems Except as stated in HPI: all other systems reviewed are Neg Past Family Social History Past Medical History Hypertension Biliary stent placement History of pancreatic mass Past Surgical History Pancreatic mass biopsy Biliary stent placement Bilateral knee replacement Reported Medications Reported Meds & Active Scripts Active [place] (Hydrocodone-Acetaminophen) 5 Mg-325 Mg Tab 1 Tab PO Q4H PRN Augmentin (Amoxicillin-Clavulanate) 875-125 Mg Tab 1 Tab PO BID 5 Days Reported Lisinopril 20 Mg Tab 20 Mg PO DAILY Amlodipine (Amlodipine Besylate) 5 Mg Tab 5 Mg PO BID Vitamin D3 (Cholecalciferol) 5,000 Unit Cap 5,000 Units PO DAILY Allergies: Coded Allergies: No Known Allergies (Verified Allergy, Unknown, 05/09/17) Active Ordered Medications Current Medications Medications (Trade) Dose Ordered Sig/[place]den Route Start Time Stop Time Status Last Admin (NS Flush) 2 ml UNSCH PRN IV FLUSH 05/10/17 00:15 (NS Flush) 2 ml BID IV FLUSH 05/10/17 09:00 (Tylenol) 650 mg Q4H PRN PO 05/10/17 00:15 (Zofran Inj) 4 mg Q6H PRN IVP 05/10/17 00:15 (Narcan Inj) 0.4 mg UNSCH PRN IV PUSH 05/10/17 00:15 ([place] 5-325 Mg) 1 tab Q4H PRN PO 05/10/17 00:15 Family History Patient denies any family history of heart disease or cancer. Social History Tobacco use: Prior smoker Alcohol use: Rarely Illicit drug use: Denies Physical Exam Vital Signs Vital Signs Date Time Temp Pulse Resp B/P (MAP) Pulse Ox O2 Delivery O2 Flow Rate FiO2 05/09/17 20:53 18 96 Room Air 05/09/17 20:45 103 18 94 Room Air 05/09/17 20:42 105 18 168/80 (109) 96 Room Air 05/09/17 20:20 97.3 115 18 160/60 (93) 96 Physical Exam GENERAL: This is a well-nourished, well-developed patient, in mild pain SKIN: No rashes, ecchymoses or lesions. Cool and dry. HEAD: Atraumatic. Normocephalic. EYES: Pupils equal round and reactive. ENT: Nose without bleeding, purulent drainage or septal hematoma. Airway patent. NECK: Trachea midline. No JVD or lymphadenopathy. Supple, nontender, no meningeal signs. CARDIOVASCULAR: Regular rate and rhythm without murmurs, gallops, or rubs. RESPIRATORY: Clear to auscultation. Breath sounds equal bilaterally. No wheezes , rales, or rhonchi. GASTROINTESTINAL: Abdomen soft, right-sided tenderness, nondistended. No hepato- splenomegaly, or palpable masses. No guarding. Biliary drain in place with no output. MUSCULOSKELETAL: Extremities without clubbing, cyanosis, or edema. No joint tenderness, effusion, or edema noted. No calf tenderness. NEUROLOGICAL: Awake and alert. Motor and sensory grossly within normal limits. Normal speech. Laboratory Laboratory Tests Test 05/09/17 20:30 White Blood Count 11.4 Red Blood Count 4.23 Hemoglobin 13.7 Hematocrit 39.7 Mean Corpuscular Volume 94.0 Mean Corpuscular Hemoglobin 32.5 Mean Corpuscular Hemoglobin Concent 34.5 Red Cell Distribution Width 13.6 Platelet Count 280 Mean Platelet Volume 7.5 Neutrophils (%) (Auto) 77.6 Lymphocytes (%) (Auto) 11.4 Monocytes (%) (Auto) 8.9 Eosinophils (%) (Auto) 1.8 Basophils (%) (Auto) 0.3 Neutrophils # (Auto) 8.9 Lymphocytes # (Auto) 1.3 Monocytes # (Auto) 1.0 Eosinophils # (Auto) 0.2 Basophils # (Auto) 0.0 CBC Comment DIFF FINAL Differential Comment Blood Urea Nitrogen 29 Creatinine 1.15 Random Glucose 145 Total Protein 7.4 Albumin 2.4 Calcium Level 8.9 Magnesium Level 2.1 Alkaline Phosphatase 110 Aspartate Amino Transf (AST/SGOT) 22 Alanine Aminotransferase (ALT/SGPT) 20 Total Bilirubin 0.6 Sodium Level 138 Potassium Level 3.9 Chloride Level 103 Carbon Dioxide Level 26.8 Anion Gap 8 Estimat Glomerular Filtration Rate 60 Lipase 61 Result Diagram: 05/09/17202905/09/172029 Imaging Last Impressions Abdomen/Pelvis CT 05/09/172055 Signed Impressions: Service Date/Time: Tuesday, May 09, 2017 22:01 - CONCLUSION: 1. Pneumobilia, biliary stent, inflammatory changes in the right upper quadrant with abnormal appearance of the gallbladder identified. 2. Bilateral adrenal nodules. 3. There is a stent within the common bile duct and the distal tip terminates in the third portion of the duodenum. This has not changed. Jordan Shaikh MD Caprini VTE Risk Assessment Caprini VTE Risk Assessment: No/Low Risk (score <= 1) Caprini Risk Assessment Model Point Value = 1 Point Value = 2 Point Value = 3 Point Value = 5 Age 41-60 Minor surgery BMI > 25 kg/m2 Swollen legs Varicose veins or History of unexplained or recurrent spontaneous Oral contraceptives or hormone replacement Sepsis (< 1 month) Serious lung disease, including pneumonia (< 1 month) Abnormal pulmonary function Acute myocardial infarction Congestive heart failure (< 1 month) History of inflammatory bowel disease Medical patient at bed rest Age 61-74 Arthroscopic surgery Major open surgery (> 45 min) Laparoscopic surgery (> 45 min) Malignancy Confined to bed (> 72 hours) Immobilizing plaster cast Central venous access Age >= 75 History of VTE Family history of VTE Factor V Leiden Prothrombin [id number] Lupus anticoagulant Anticardiolipin antibodies Elevated serum homocysteine Heparin-induced thrombocytopenia Other congenital or acquired thrombophilia Stroke (< 1 month) Elective arthroplasty Hip, pelvis, or leg fracture Acute spinal cord injury (< 1 month) Prophylaxis Regimen Total Risk Factor Score Risk Level Prophylaxis Regimen 0-1 Low Early ambulation 2 Moderate Order ONE of the following: *Sequential Compression Device (SCD) *Heparin 5000 units SQ BID 3-4 Higher Order ONE of the following medications: *Heparin 5000 units SQ TID *Enoxaparin/Lovenox 40 mg SQ daily (WT < 150 kg, CrCl > 30 mL/min) *Enoxaparin/Lovenox 30 mg SQ daily (WT < 150 kg, CrCl > 10-29 mL/min) *Enoxaparin/Lovenox 30 mg SQ BID (WT < 150 kg, CrCl > 30 mL/min) AND/OR *Sequential Compression Device (SCD) 5 or more Highest Order ONE of the following medications: *Heparin 5000 units SQ TID (Preferred with Epidurals) *Enoxaparin/Lovenox 40 mg SQ daily (WT < 150 kg, CrCl > 30 mL/min) *Enoxaparin/Lovenox 30 mg SQ daily (WT < 150 kg, CrCl > 10-29 mL/min) *Enoxaparin/Lovenox 30 mg SQ BID (WT < 150 kg, CrCl > 30 mL/min) AND *Sequential Compression Device (SCD) Assessment and Plan Problem List: (1) Hypertension ICD Code: I10 - Essential (primary) hypertension (2) Cholecystostomy tube dysfunction ICD Code: T85.518A - Breakdown (mechanical) of other gastrointestinal prosthetic devices, implants and grafts, initial encounter Status: Acute Assessment and Plan 89-year-old male with a past medical history of questionable pancreatic mass with biliary stent placement on 01/24 and a biliary drain placed on and hypertension presents to the ED evaluation of a possible biliary drain dislodgment. Biliary drain dislodgment Abdomen/pelvis CT reviewed and shows pneumobilia, biliary stent, inflammatory changes on the right upper quadrant with abnormal appearance of the gallbladder. -Consult interventional radiology for replacement of biliary drain -Pain management with PO [place] -Nothing by mouth -Continue Augmentin by mouth for 4 more days Hypertension, chronic -Resumed home medications, monitor vitals DVT prophylaxis: SCDs Discussed Condition With Patient, patient's daughter and ED physician Problem Qualifiers (1) Cholecystostomy tube dysfunction: Qualified Codes: T85.518A - Breakdown (mechanical) of other gastrointestinal prosthetic devices, implants and grafts, initial encounter Iman Haji May 09, 2017 23:27
[2017-05-10] MEDS ORDERED: ACETAMINOPHEN 325 MG TAB PO PRN (00:15)
[2017-05-10] MEDS ORDERED: SODIUM CHLORIDE 0.9% FLUSH 10 ML FLUSH IV FLUSH PRN (00:15)
[2017-05-10] MEDS ORDERED: ONDANSETRON HCL 4 MG/2 ML VIAL IVP PRN (00:15)
[2017-05-10] MEDS ORDERED: ACETAMINOPHEN/HYDROcodone 325 MG/5 MG TAB PO PRN (00:15)
[2017-05-10] MEDS ORDERED: NALOXONE HCL 0.4 MG/ML AMP IV PUSH PRN (00:15)
[2017-05-10 02:25] VITALS: BP 135/65; PULSE 94; RESP 18; TEMP 97.7; O2SAT 96
[2017-05-10 08:36] VITALS: BP 133/79; PULSE 81; RESP 16; TEMP 98.5; O2SAT 93
--- NOTE | 2017-05-10 08:49 | EKG ---
Date Performed: 05/09/2017 Time Performed: 20:56:56 PTAGE: 89 years EKG: ATRIAL FIBRILLATION/FLUTTER WITH RAPID VENTRICULAR RESPONSE VOLTAGE CRITERIA FOR LVH NONSPE CIFIC ST & T-WAVE ABNORMALITY ABNORMAL ECG PREVIOUS TRACING : 05/05/2017 13.23 Compared to previous tracing, a fib/flutter now present DOCTOR: Tamika Pillai Interpretating Date/Time 05/10/2017 08:47:35
[2017-05-10] MEDS ORDERED: AMOXICILLIN/CLAVULANATE K 875 MG TAB PO SCH (09:00)
[2017-05-10] MEDS ORDERED: SODIUM CHLORIDE 0.9% FLUSH 10 ML FLUSH IV FLUSH SCH (09:00)
[2017-05-10] MEDS ORDERED: amLODIPine BESYLATE 5 MG TAB PO SCH (09:00)
[2017-05-10] MEDS ORDERED: LISINOPRIL 20 MG TAB PO SCH (09:00)
[2017-05-10] MEDS ORDERED: MIDAZOLAM HCL 2 MG/2 ML VIAL ONE (09:02)
[2017-05-10] MEDS ORDERED: LEVOFLOXACIN 500 MG PREMIX INJ 100 ML IV ONE (09:16)
[2017-05-10 10:10] VITALS: BP 117/62; PULSE 50; RESP 20; TEMP 98.5; O2SAT 94
[2017-05-10 10:25] VITALS: BP 102/60; PULSE 54; RESP 18; O2SAT 97
[2017-05-10 10:55] VITALS: BP 117/70; PULSE 49; RESP 18; O2SAT 98
--- NOTE | 2017-05-10 11:05 | PD.RAD ---
Post Procedure Progress Note Pre Procedure Diagnosis: (1) Cholecystostomy tube dysfunction Post Procedure Diagnosis: (1) Cholecystostomy tube dysfunction Procedure Date: May 10, 2017 Supervising Radiologist: Aakash Parnell Proceduralist/Assist: Kaylan Pham, RT(R), Myke Richards, RT(R) Anesthesia: Conscious Sedation Plan of Activity Patient to Unit: Nursing Unit Patient Condition: Good See PACS Report for procedural detail/treatment Drainage Procedure Procedure 1 Imaging Guidance: Fluoroscopy Procedure Type: Cholecystostomy Procedure: Placement Yoruba: 8 Fluid Description: Cloudy, Yellow Aakash Parnell MD May 10, 2017 11:05
--- NOTE | 2017-05-10 13:15 | RADRPT ---
EXAM DATE/TIME: 05/10/2017 09:18 [place] COMPARISON: CHOLECYSTOSTOMY, PERCUTANEOUS, May 06, 2017, 9:13. INDICATIONS : Patient presents with acute cholecystitis in need of cholecystostomy tube placement. MEDICAL HISTORY : HTN Pancreatic mass SURGICAL HISTORY : Pancreatic mass bx Biliary stent placement Bilateral knee replacement ENCOUNTER: Subsequent ACUITY: 4 - 6 days PAIN SCORE: 0/10 LOCATION: N/A FLUORO TIME: 1.4 minutes IMAGE SERIES: 2 SEDATION TIME: 30 minutes CONTRAST: 10 cc Omnipaque (iohexol) 350 MEDICATION(S): 1.) 2 mg midazolam (Versed) IV 2.) 100 mcg fentanyl (Sublimaze) IV DEVICE(S): 1.) 8 Cam[place]onian 25 cm Expel Multipurpose locking PROCEDURE : 1. Ultrasound guided puncture of the gallbladder. 2. Percutaneous cholangiogram. 3. Percutaneous cholecystostomy tube placement. 4. Conscious sedation with continuous EKG and oximetry monitoring. The risks, benefits and alternatives to the procedure were explained and verbal and written consent w as obtained. The site was prepped in sterile fashion. Full sterile technique was used, including ca p, mask, sterile gloves and gown and a large sterile sheet. Hand hygiene and 2% chlorhexidine and/or betadine/alcohol prep was utilized per protocol for cutaneous antisepsis. Sterile gel and sterile p robe cover were utilized for ultrasound guidance. The skin and subcutaneous tissues were infiltrated with local anesthetic solution. With ultrasound and fluoroscopic guidance the gallbladder was punctured with a micropuncture set and a 4 Cam[place]onian dilator was placed. Injection of positive contrast demonstrates position within the gallb ladder. A 0.035 guidewire was placed within the gallbladder lumen and dilatation was performed to ac cept the prescribed catheter. Injection of contrast again demonstrates multiple stones within the gallbladder. The tube was replace d as the previously tube was dislodged. Conscious sedation was performed with the prescribed dosages and duration as above in the presence of an independent trained radiology nurse to assist in the monitoring of the patient. EKG and oximetry remained stable throughout the procedure. The patient tolerated the procedure well and there were n o complications. The patient was sent to post anesthesia recovery in stable condition. CONCLUSION: 1. Uncomplicated percutaneous cholecystostomy Aakash Parnell MD on May 10, 2017 at 13:07 Board Certified Radiologist. This report was verified electronically.
--- NOTE | 2017-05-10 13:46 | HHI.FF ---
Face to Face Verification Diagnosis: (1) Cholecystostomy tube dysfunction (2) Cholecystitis Physical Therapy Order: Evaluate and Treat Occupational Therapy Order: Evaluate and Treat Home Health Nursing Order: Nursing assessment with vital signs Instructions: Cholecystostomy tube care District Sales Leader Order: To Provide: Long range planning I have seen patient Immanuel Seay on 05/10/17. My clinical findings support the need for the requested home health care services because: Limited ability to care for self I certify that my clinical findings support that this patient is homebound because: Unsafe to leave home unassisted Celio Pineda MD May 10, 2017 13:45
--- NOTE | 2017-05-10 13:54 | HHI.PR ---
Subjective Remarks Patient is doing well. Denies any chest pain or shortness of breath. Denies any nausea or vomiting. Reports minimal pain at biliary tube insertion site. Feels like going home. Discussed with daughter at bedside. Objective Vital Signs Date Time Temp Pulse Resp B/P (MAP) Pulse Ox O2 Delivery O2 Flow Rate FiO2 05/10/17 10:55 49 18 117/70 (86) 98 05/10/17 10:25 54 18 102/60 (74) 97 05/10/17 10:10 98.5 50 20 117/62 (80) 94 05/10/17 08:36 98.5 81 16 133/79 (97) 93 05/10/17 02:25 97.7 94 18 135/65 (88) 96 05/10/17 01:18 05/09/17 20:53 18 96 Room Air 05/09/17 20:45 103 18 94 Room Air 05/09/17 20:42 105 18 168/80 (109) 96 Room Air 05/09/17 20:20 97.3 115 18 160/60 (93) 96 I/O 05/09/17 05/09/17 05/09/17 05/10/17 05/10/17 05/10/17 07:00 15:00 23:00 07:00 15:00 23:00 Output Total 0 ml Balance 0 ml Output Drainage Total 0 ml # Voids 2 Result Diagram: 05/09/17202905/09/172029 Objective Remarks GENERAL: Patient sitting up in bed. Appears comfortable. SKIN: Warm and dry. HEAD: Normocephalic. EYES: No scleral icterus. No injection or drainage. NECK: Supple, trachea midline. No JVD. CARDIOVASCULAR: Regular rate and rhythm without murmurs, gallops, or rubs. RESPIRATORY: Breath sounds equal bilaterally. No accessory muscle use. GASTROINTESTINAL: Abdomen soft, non-tender, nondistended. Cholecystostomy to right upper quadrant. Serosanguineous drainage. MUSCULOSKELETAL: No cyanosis, or edema. BACK: Nontender without obvious deformity. No CVA tenderness. A/P Assessment and Plan 89-year-old male with a past medical history of questionable pancreatic mass with biliary stent placement on 01/24 and a biliary drain placed on and hypertension presents to the ED evaluation of a possible biliary drain dislodgment. //Biliary drain dislodgment Abdomen/pelvis CT reviewed and shows pneumobilia, biliary stent, inflammatory changes on the right upper quadrant with abnormal appearance of the gallbladder. -Consult interventional radiology for replacement of biliary drain -Pain management with PO [place] -Nothing by mouth -Continue Augmentin by mouth for 4 more days = Status post cholecystostomy tube replacement. disCharge home. Continue Augmentin. Follow with Dr. Callahan this week. //Hypertension, chronic -Resumed home medications, monitor vitals //DVT prophylaxis: SCDs Discharge Planning Discharge home with home health in good condition. Continue heart healthy diet. Activity ad boubacar. Please see discharge medication reconciliation medication list. Follow with primary care and Dr. Callahan in general surgery this week Celio Pineda MD May 10, 2017 13:54
[2017-05-10 15:24] LABS: AUTOMATED NEUTROPHIL # 6.8 TH/MM3 (1.8-7.7); BASOPHIL % 0.3 % (0.0-2.0); EOSINOPHIL # 0.2 TH/MM3 (0-0.4); EOSINOPHIL % 2.4 % (0.0-4.0); HEMATOCRIT 37.6 % (39.0-51.0); HEMOGLOBIN 12.7 GM/DL (13.0-17.0); LYMPH % 13.3 % (9.0-44.0); LYMPHOCYTE # 1.2 TH/MM3 (1.0-4.8); MEAN CORPUSCULAR HEMOGLOBIN 31.8 PG (27.0-34.0); MEAN CORPUSCULAR HGB CONC 33.8 % (32.0-36.0); MEAN PLATELET VOLUME 7.7 FL (7.0-11.0); MONO % 9.3 % (0.0-8.0); MONOCYTE # 0.8 TH/MM3 (0-0.9); NEUT % 74.7 % (16.0-70.0); PLATELET COUNT 286 TH/MM3 (150-450); RED CELL DISTRIBUTION WIDTH 13.6 % (11.6-17.2); WHITE BLOOD COUNT 9.1 TH/MM3 (4.0-11.0)
== END 2017-05-10 17:00 | disposition home or self-care (01) ==
LOC: NEPE 20:11 → NEDA 22:51 → NEPGCP 05-10 00:51
PROVIDERS: ADMIT Internal Medicine; ATTEND Internal Medicine
DX: T85.520D Displacement of bile duct prosthesis, subsequent encounter (principal); Z79.899 Other long term (current) drug therapy
CPT/HCPCS: 47490; 74177; 80053; 83690; 83735; 85025; 93005; 96374; 99152; 99153; 99285; C1729; C1769; G0378; J1956; J2250; J3010; Q9967